=== PATIENT | male | born 1935 | race Caucasian/White ===

== ENCOUNTER 2016-09-13 20:50 | Emergency (ER) | payer OTHER, BC ==
[~2016-09-13] VITALS: Ht 177.8 cm; Wt 77.1 kg
[~2016-09-13 20:50] MED LIST: ASPIRIN81 M2 PO; CALCIUM 600 +1 EAC5 PO; CIALIS2.5 MG PO; DIOVAN160 MG; DIOVAN320 MG PO; DOXYCYCLINE 10100 MG PO; ELEMENTAL CALC600 MG PO; FISH OIL 1,0001 EAC5 PO; FISH OIL 1,001000 M1 PO; FISH OIL 1,001000 M2 PO; FLAGYL 250 MG250 MG PO; LEVAQUIN 500 M500 M7; LORATIDINE 10 M10 M1 PO; LOVASTAT40 PO; MULTI VITAMIN1 EACH PO; NEURONTIN 300300 M1; NEURONTIN 300300 M1 PO; NEURONTIN 300M300 M2 PO; NITROGLYCERIN0.4 MG SL; NORVASC 5 MG TAB5 MG PO; OMEPRAZOLE 20 M20 M1 PO; RANEXA1000 MG PO; RANEXA500 MG PO; TIZANIDINE HCL4 MG PO; TOPROL XL25 MG PO; VALSARTAN-HCTZ1 EAC3 PO; VASCEPA1 GM PO; VITAMINC500 PO
[2016-09-13] MEDS ORDERED: TRAMADOL 50 MG50 MG PO (22:37)
[2016-09-13] MEDS ORDERED: KEFLEX500 MG PO (22:43)
[2016-09-13 23:50] VITALS: BP 146/78
== END 2016-09-13 23:50 | disposition home or self-care (01) ==
LOC: ER 20:50
DX: S20.212A Contusion of left front wall of thorax, initial encounter (principal); M70.22 Olecranon bursitis, left elbow; I10 Essential (primary) hypertension; G62.9 Polyneuropathy, unspecified; E78.00 Pure hypercholesterolemia, unspecified; K21.9 Gastro-esophageal reflux disease without esophagitis; I25.2 Old myocardial infarction; Z90.49 Acquired absence of other specified parts of digestive tract; Z95.5 Presence of coronary angioplasty implant and graft; Z87.442 Personal history of urinary calculi; Z95.0 Presence of cardiac pacemaker; Z88.0 Allergy status to penicillin; Z88.2 Allergy status to sulfonamides; W11.XXXA Fall on and from ladder, initial encounter; Y93.E9 Activity, other interior property and clothing maintenance; Y92.090 Kitchen in other non-institutional residence as the place of occurrence of the external cause; Y99.8 Other external cause status

== ENCOUNTER 2017-01-21 13:37 | Inpatient (IN) | payer OTHER, BC ==
[~2017-01-21] VITALS: Ht 170.2 cm; Wt 70.8 kg
--- NOTE | ~2017-01-21 | D ---
[facility] [place] [address] [place] [address] DISCHARGE SUMMARY Name: STEPHANI NAVARRO Room #: 219-P [facility] IN M.R.#: [id number] Admission: 01/21/17 Attend Phys: Sen Maloney MD, Discharge: 01/23/17 Date of : 34 Report #: [id number] THIS REPORT FOR: //name// CC: Sen Rangel [facility] DISCHARGE DIAGNOSES: 1. Nonsustained ventricular tachycardia secondary to Medtronic MVP pacing algorithm initiating long short nonsustained ventricular tachycardia. 2. Coronary artery disease, status post coronary artery bypass graft. HISTORY OF PRESENT ILLNESS: The patient is an 81-year-old with history of coronary artery disease, status post CABG with a known occluded LAD and a COOPER to the LAD, who also has a history of Medtronic dual chamber pacemaker implantation for sick sinus syndrome. Recently, the patient has been having increased presyncopal episodes. His device was interrogated in clinic, which I reviewed, which showed episodes of nonsustained VT/polymorphic VT, which were all initiated with the MVP pacing algorithm. This would result in a long short and the episodes of VT were initiated by a ventricular safety paced beat. As such, on admission, this was programmed off. After programming this feature off, he had no further episodes of VT. We initially discussed having the patient undergo a coronary angiogram, but after reviewing the films with the recreation supervisor, he has a known occluded LAD with a long lesion as well as an occluded COOPER to the LAD. It was felt that if this site was ischemic, it would not be able to be intervened on. As such, we recommended medical management of this known area of ischemia based on a prior stress test earlier this summer. Beta blockers were initiated. The patient was monitored in the hospital and on telemetry, there were no arrhythmias. I interrogated his device each day and there were no further episodes of any ventricular arrhythmias. As such, the patient was deemed stable for discharge home. He was discharged on his same home medications. However, I did initiate a beta nikki during this hospitalization. He will follow up in 1 week with me for management of his pacemaker. He will continue to follow with Dr. Maloney for management of his known coronary artery disease. <ELECTRONICALLY SIGNED> By: Campbell Lopez MD 01/30/17 1314 1202 1424 Campbell Lopez MD /nt
--- NOTE | ~2017-01-21 | H ---
[facility] [address] [place] [address] HISTORY AND PHYSICAL Name: STEPHANI NAVARRO Room #: 219-P [facility] IN M.R.#: [id number] Admission: 01/21/17 Attend Phys: Sen Maloney MD, Discharge: 01/23/17 Date of : 34 Report #: [id number] THIS REPORT FOR: //name// CC: [facility] DATE OF SERVICE: 01/21/2017 REASON FOR ADMISSION: VT. HISTORY OF PRESENT ILLNESS: The patient is an 81-year-old with history of sick sinus syndrome, status post pacemaker implantation several years ago as well as coronary artery disease, status post CABG, last catheterization back in 08/2015. He follows with Dr. Maloney. His pacemaker is a 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 Mathew back in 03/2014. His CABG was performed by Dr. Deep Correa, which was a 5-vessel CABG in 2000. Over the past several days, the patient has been having increased lightheadedness and near syncopal episodes. He came in to clinic for further evaluation. His pacemaker was interrogated. This showed some episodes of nonsustained VT, actually more consistent with short runs of possibly torsades. These episodes started in early October and the frequency has increased. These are always preceeded by a long short which looks like it is related to his MVP pacing algorithm. The majority of these episodes are 1 second in duration. The longest duration was approximately 8 seconds with the ventricular cycle lengths anywhere from 200-240 milliseconds with irregularity and changes in the ventricular morphology and termination back to sinus rhythm. The patient denies any chest pain or chest tightness. He does notice increased exertional dyspnea. He denies any PND or orthopnea. REVIEW OF SYSTEMS: GENERAL: No fevers or chills. HEENT: No blurred vision. CARDIOVASCULAR: As above. PULMONARY: No productive cough. GASTROINTESTINAL: No nausea or vomiting. GENITOURINARY: No dysuria. MUSCULOSKELETAL: No myalgias or arthralgias. ENDOCRINE: No heat or cold intolerance. NEUROLOGIC: No focal weakness. PAST MEDICAL HISTORY: As mentioned above. SOCIAL HISTORY: Does not smoke. FAMILY HISTORY: Noncontributory. HOME MEDICATIONS: Include amlodipine 5 mg a day, aspirin 81 a day, Vascepa, [facility] [address] [place] [address] HISTORY AND PHYSICAL Name: STEPHANI NAVARRO Room #: 219-P [facility] IN M.R.#: [id number] Admission: 01/21/17 Attend Phys: Sen Maloney MD, Discharge: 01/23/17 Date of : 34 Report #: [id number] lovastatin, omeprazole, ranolazine, valsartan with hydrochlorothiazide. He is not on a beta nikki. ALLERGIES: INCLUDE PENICILLIN AND SULFA. VITAL SIGNS: Temperature is 36.4, pulse 61, respiration 17, blood pressure 142/80, sats 97%. LABORATORY DATA: His white count is 14.9, hemoglobin 11.7, platelets are 251. Sodium is 139, potassium 3.6, BUN 21, creatinine 1.1, T-bili 1.2. AST normal, ALT 19, alkaline phosphatase 80. His chest x-ray showed no acute process. Device interrogation is described above. A 12-lead EKG performed today at 1619 shows normal sinus rhythm with a IL interval 134 milliseconds, QRS duration 160 milliseconds and a corrected QT interval [address] or T-wave changes to suggest ischemia. ASSESSMENT AND PLAN: In summary, the patient is an 81-year-old with history of coronary artery disease status post myocardial infarction. Echo today shows an EF of 45%-50%. Given these findings, I have recommended that he undergo diagnostic cardiac catheterization tomorrow, looking for any ischemia that could be related to this. He has no prolonged QT on his EKG. He is not on any medications that could be prolonging his QT or resulting in ventricular arrhythmias. I did make programming changes to his pacemaker by turning off his MVP algorithm to hopefully prevent these long short intervals that induce these arrhythmias. We will continue to follow. <ELECTRONICALLY SIGNED> By: Campbell Lopez MD 01/30/17 1314 1735 1752 Campbell Lopez MD /nt
--- NOTE | ~2017-01-21 | EKG ---
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 LVH with IVCD, LAD and secondary repol abnrm Electronically Signed On 01-21-2017 21:24:57 HOST/HOSTESS HEAD by Campbell Lopez [email or web address] <ELECTRONICALLY SIGNED> By: Campbell Lopez MD 01/21/172123 18 18 Campbell Lopez MD /DARRIUS
[~2017-01-21 13:37] MED LIST changes: +KEFLEX500 MG PO; +TRAMADOL 50 MG50 MG PO
[2017-01-21 15:43] VITALS: BP 142/80
[2017-01-21 15:56] LABS: HEMATOCRIT 45.3 % (42.0-52.0); HEMOGLOBIN 15.3 gm/dL (14.0-18.0); MCH 30.1 pg (26.0-34.0); MCHC 33.8 g/dL (28.0-37.0); MCV 89.1 fL (80.0-100.0); RBC 5.08 mil/uL (4.50-6.00); RDW 13.9 % (10.5-14.5); WBC 7.2 thou/uL (4.0-11.0)
[2017-01-21 16:04] LABS: HEMATOCRIT 38.1 % (42.0-52.0); MCH 19.5 pg (26.0-34.0); MCHC 30.9 g/dL (28.0-37.0); RBC 6.03 mil/uL (4.50-6.00); RDW 16.7 % (10.5-14.5); WBC 14.9 thou/uL (4.0-11.0)
[2017-01-21 16:05] LABS: HEMOGLOBIN 11.7 gm/dL (14.0-18.0); MANUAL DIFF YES; MCV 63.1 fL (80.0-100.0); PLATELET COUNT 251 thou/uL (150-400)
[2017-01-21 16:09] LABS: ALBUMIN 3.8 g/dL (3.4-5.0); CALCIUM 9.2 mg/dL (8.5-10.1); CREATININE 1.1 mg/dL (0.7-1.3); INR 1.1; POTASSIUM 3.6 mmol/L (3.5-5.1); PROTIME 10.4 Seconds (9.3-11.4); TOTAL BILIRUBIN 1.2 mg/dL (<0.1-1.0)
[2017-01-21 16:23] LABS: ANISOCYTOSIS 1+; TOTAL CELL COUNT 100
[2017-01-21 16:24] LABS: HYPOCHROMASIA 1+; MICROCYTES SLIGHT
[2017-01-21 20:15] VITALS: BP 129/69
[2017-01-22 00:15] VITALS: BP 122/69
[2017-01-22 05:00] VITALS: BP 118/76
[2017-01-22 07:51] VITALS: BP 132/82
[2017-01-22 11:20] VITALS: BP 158/82
[2017-01-22 15:00] VITALS: BP 97/66
[2017-01-22 19:45] VITALS: BP 127/61
[2017-01-23 04:15] VITALS: BP 106/63
[2017-01-23 08:05] VITALS: BP 119/72
[2017-01-23] MEDS ORDERED: TOPROL XL25 MG PO (10:01)
[2017-01-23 11:05] VITALS: BP 118/64
[2017-01-23 12:00] VITALS: BP 106/63
== END 2017-01-23 13:15 | disposition home or self-care (01) | DRG 309 ==
LOC: 2N 13:37 → ENTRNSPT 01-23 12:56 → EDTRNSPTSTS 01-23 12:59 → 2N 01-23 13:15
PROVIDERS: Internal Medicine Cardiovascular Disease; Nurse Practitioner Adult Health
DX: I47.2 Ventricular tachycardia (principal); I50.42 Chronic combined systolic (congestive) and diastolic (congestive) heart failure; I25.10 Atherosclerotic heart disease of native coronary artery without angina pectoris; I49.5 Sick sinus syndrome; Z95.1 Presence of aortocoronary bypass graft; Z88.0 Allergy status to penicillin; Z88.2 Allergy status to sulfonamides; I25.2 Old myocardial infarction; Z95.0 Presence of cardiac pacemaker
CPT/HCPCS: 10797

== ENCOUNTER → 2018-01-29 | Outpatient (CLI) | payer OTHER, BC ==
[~2018-01-29] VITALS: Ht 175.3 cm; Wt 72.6 kg
[~2018-01-29] MED LIST changes: +LOSARTAN-HCTZ1 EAC2 PO; +PACERONE 200 M200 M1 PO; +TYLENOL EXTRA500 MG PO
--- NOTE | ~2018-01-29 | P ---
[facility] [place] [address] PROCEDURE REPORT Name: STEPHANI NAVARRO [id number] Admission: 01/29/18 Attend Phys: Abdelrahman Carr Discharge: Date of : 34 Report #: [id number] THIS REPORT FOR: //name// CC: Abdelrahman Maloney MD [facility] Juan Carlos Greenberg MD DATE OF SERVICE: 01/29/2018 PROCEDURE PERFORMED: Colonoscopy with biopsies. HISTORY OF PRESENT ILLNESS: The patient is an 82-year-old male with a history of multiple tubular adenomatous polyps 3 years ago, here for routine followup. Denies any symptoms. No family history of colon cancer. DESCRIPTION OF PROCEDURE: The risks and benefits of the procedure were explained to the patient, those risks including but not limited to bleeding, perforation and the risk of sedation. He understood these risks and gave informed consent. Sedation was given using propofol per Anesthesia. Next, a digital rectal exam was initially performed, which was normal. Next, using a standard Olympus colonoscope, the scope was placed in the patient's anus and advanced under direct vision to the cecum. The overall prep was good. The cecum and ileocecal valve were normal in appearance. In the ascending colon, there was a 3 mm sessile polyp. This was removed with cold forceps, otherwise normal. In the transverse colon, a 5 mm sessile polyp also removed with cold forceps, otherwise normal. Descending colon was normal. Multiple diverticula noted in the sigmoid colon, no evidence of inflammation. The rectal mucosa was normal. On retroflexion, small to medium size, nonbleeding internal hemorrhoids were noted. The scope was then withdrawn and the procedure terminated. The patient tolerated the procedure well. IMPRESSION: 1. Two small colonic polyps. 2. Sigmoid diverticulosis. 3. Internal hemorrhoids. 4. Otherwise, normal colonoscopy. RECOMMENDATIONS: 1. Await biopsy results. 2. No need for repeat colonoscopy due to the patient's age. [address] [address] PROCEDURE REPORT Name: STEPHANI NAVARRO Room #: REG [facility]#: [id number] Admission: 01/29/18 Attend Phys: Abdelrahman Carr Discharge: Date of : 34 Report #: [id number] Thank you for allowing me to participate in his care. <ELECTRONICALLY SIGNED> By: Abdelrahman Mark MD 02/01/18 0902 0854 0929 Abdelrahman Mark MD /nt
--- NOTE | ~2018-01-29 | PATH ---
[facility] [address] [place] [address] PATHOLOGY RPT PROCEDURE Name: MATTHIEU SANCHEZ Room #: REG CLSarah Shah.#: [id number] Admission: 01/29/18 Date of : 34 Discharge: Report #: [id number] Path Case #: [id number] [facility] Accession Number: [id number] . 01 Material submitted: . PART A: POLYP AT TRANSVERSE COLON PART B: POLYP AT ASCENDING COLON . 01 Clinical history: . Pre-OP DX: Hx polyps Post-OP DX: Colon polyp, diverticulosis . 02 Diagnosis: A. Polyp, at transverse colon, endoscopic biopsy: - Tubular adenoma. - Negative for high grade dysplasia. . B. Polyp, at ascending colon, endoscopic biopsy: - Tubular adenoma. - Negative for high grade dysplasia. . (IUV:mml; 02/01/18) QL/02/01/2018 . 02 Electronically signed: . Ashley Priest MD, Pathologist NPI- [id number] . 01 Gross description: . A. Received in formalin labeled "Matthieu Sanchez, polyp at transverse colon," is a single segment of lee soft tissue measuring 0.5 cm in maximum dimension. The specimen is entirely submitted in cassette A1. . B. Received in formalin labeled "Matthieu Sanchez, polyp at ascending colon," are 2 segments of lee soft tissue measuring 0.5 x 0.3 x 0.2 cm in aggregate dimensions and ranging from 0.2 to 0.3 cm in maximum dimension. The specimen is submitted entirely in cassette B1. (TSD; 01/29/2018) TOB/TOB . 02 Pathologist provided ICD-10: D12.3, D12.2 . 02 CPT . 613744, 325785 Specimen Comment: A courtesy copy of this report has been sent to Specimen Comment: [phone], [place] [address] PATHOLOGY RPT PROCEDURE Name: MATTHIEU SANCHEZ [facility] [id number] Admission: 01/29/18 Date of : 34 Discharge: Report #: [id number] Path Case #: [id number] Specimen Comment: Report sent to / DR COPE Performed at: [address], [place], [place] [id number] MD Deondre Grace MD Phone: [phone] Performed at: [address] [id number] MD Ashley Priest MD Phone: [phone]
== END | disposition home or self-care (01) ==
LOC: GI 06:23
DX: Z12.11 Encounter for screening for malignant neoplasm of colon (principal); Z86.010 Personal history of colon polyps; D12.2 Benign neoplasm of ascending colon; D12.3 Benign neoplasm of transverse colon; K57.30 Diverticulosis of large intestine without perforation or abscess without bleeding; K64.8 Other hemorrhoids; K21.9 Gastro-esophageal reflux disease without esophagitis; I10 Essential (primary) hypertension; I25.2 Old myocardial infarction; I25.5 Ischemic cardiomyopathy; E78.5 Hyperlipidemia, unspecified; G62.9 Polyneuropathy, unspecified; Z95.5 Presence of coronary angioplasty implant and graft; Z98.890 Other specified postprocedural states; Z79.899 Other long term (current) drug therapy; Z87.442 Personal history of urinary calculi; Z90.49 Acquired absence of other specified parts of digestive tract; Z95.0 Presence of cardiac pacemaker; Z98.41 Cataract extraction status, right eye; Z98.42 Cataract extraction status, left eye; Z88.2 Allergy status to sulfonamides; Z88.0 Allergy status to penicillin; Z79.82 Long term (current) use of aspirin
CPT/HCPCS: 62110; 62900

== ENCOUNTER → 2019-02-24 | Outpatient (CLI) | payer OTHER, BC | LOC: RAD 09:43 | DX: M25.851 Other specified joint disorders, right hip (principal); M25.511 Pain in right shoulder; M25.512 Pain in left shoulder; W19.XXXA Unspecified fall, initial encounter ==

== ENCOUNTER → 2019-03-30 | Outpatient (CLI) | payer OTHER, BC | LOC: SJCVCIMAG 07:43 | DX: Z45.018 Encounter for adjustment and management of other part of cardiac pacemaker (principal); I11.9 Hypertensive heart disease without heart failure; I08.3 Combined rheumatic disorders of mitral, aortic and tricuspid valves; I25.10 Atherosclerotic heart disease of native coronary artery without angina pectoris; I49.5 Sick sinus syndrome; I73.9 Peripheral vascular disease, unspecified; E78.00 Pure hypercholesterolemia, unspecified; I47.2 Ventricular tachycardia; I25.5 Ischemic cardiomyopathy; K21.9 Gastro-esophageal reflux disease without esophagitis; Z95.1 Presence of aortocoronary bypass graft ==

== ENCOUNTER → 2019-09-30 | Outpatient (CLI) | payer OTHER, BC | LOC: SJCVC 12:57 | PROVIDERS: ATTEND Internal Medicine Cardiovascular Disease | DX: Z45.018 Encounter for adjustment and management of other part of cardiac pacemaker (principal); I25.10 Atherosclerotic heart disease of native coronary artery without angina pectoris; I25.5 Ischemic cardiomyopathy; I49.5 Sick sinus syndrome; E78.00 Pure hypercholesterolemia, unspecified; I73.9 Peripheral vascular disease, unspecified; E78.1 Pure hyperglyceridemia; Z95.1 Presence of aortocoronary bypass graft; Z79.899 Other long term (current) drug therapy ==

== ENCOUNTER → 2020-06-21 | Outpatient (CLI) | payer OTHER, BC | LOC: SJCVC 13:49 | PROVIDERS: ATTEND Internal Medicine Cardiovascular Disease | DX: I25.10 Atherosclerotic heart disease of native coronary artery without angina pectoris (principal); I25.5 Ischemic cardiomyopathy; I49.5 Sick sinus syndrome; I10 Essential (primary) hypertension; I47.2 Ventricular tachycardia; E78.00 Pure hypercholesterolemia, unspecified; E78.1 Pure hyperglyceridemia; R79.89 Other specified abnormal findings of blood chemistry; E11.9 Type 2 diabetes mellitus without complications; Z95.1 Presence of aortocoronary bypass graft; Z90.49 Acquired absence of other specified parts of digestive tract; Z98.890 Other specified postprocedural states; Z88.0 Allergy status to penicillin; Z88.2 Allergy status to sulfonamides; Z79.899 Other long term (current) drug therapy; Z82.49 Family history of ischemic heart disease and other diseases of the circulatory system ==

== ENCOUNTER 2020-07-19 14:27 | Inpatient (IN) | payer OTHER, BC ==
[~2020-07-19] VITALS: Ht 172.7 cm; Wt 61.5 kg
[~2020-07-19 14:27] MED LIST changes: -TORSEMIDE10 MG PO; -ZOLOFT25 MG PO
[2020-07-19 15:15] VITALS: BP 156/86
[2020-07-19 16:10] LABS: HEMATOCRIT 39.8 % (42.0-52.0); HEMOGLOBIN 13.2 gm/dL (14.0-18.0); MCH 31.3 pg (26.0-34.0); MCHC 33.2 g/dL (28.0-37.0); MCV 94.1 fL (80.0-100.0); RBC 4.23 mil/uL (4.50-6.00); RDW 16.7 % (10.5-14.5); WBC 7.1 thou/uL (4.0-11.0)
[2020-07-19 16:32] LABS: ALBUMIN 3.3 g/dL (3.4-5.0); CALCIUM 8.9 mg/dL (8.5-10.1); CREATININE 1.5 mg/dL (0.7-1.3); POTASSIUM 3.4 mmol/L (3.5-5.1); TOTAL BILIRUBIN 1.3 mg/dL (0.2-1.0); TOTAL PROTEIN 6.8 g/dL (6.4-8.2)
[2020-07-19 18:00] VITALS: BP 146/71
[2020-07-19 19:23] VITALS: BP 137/69
[2020-07-20 00:25] VITALS: BP 135/86
[2020-07-20 04:39] VITALS: BP 155/87
[2020-07-20 09:50] VITALS: BP 142/82
[2020-07-20 11:58] VITALS: BP 130/78
[2020-07-20 16:00] VITALS: BP 140/91
[2020-07-20 19:47] VITALS: BP 143/90
[2020-07-21 03:51] LABS: CALCIUM 8.9 mg/dL (8.5-10.1); CREATININE 1.6 mg/dL (0.7-1.3); POTASSIUM 3.3 mmol/L (3.5-5.1)
[2020-07-21 04:11] VITALS: BP 132/66
[2020-07-21 07:46] VITALS: BP 124/68
[2020-07-21 11:03] VITALS: BP 104/68
[2020-07-21] MEDS ORDERED: ZOLOFT25 MG PO (11:08)
[2020-07-21 15:11] VITALS: BP 124/80
== END 2020-07-21 15:59 | DRG 291 ==
LOC: 2N 14:27
PROVIDERS: Nurse Practitioner; Nurse Practitioner Adult Health; ADMIT Internal Medicine Cardiovascular Disease; ATTEND Internal Medicine Cardiovascular Disease
PROC: 4B02XSZ Measurement of Cardiac Pacemaker, External Approach (ICD-10-PCS; principal; 2020-07-19)
DX: I11.0 Hypertensive heart disease with heart failure (principal); J96.20 Acute and chronic respiratory failure, unspecified whether with hypoxia or hypercapnia; I50.23 Acute on chronic systolic (congestive) heart failure; Z20.822 Contact with and (suspected) exposure to COVID-19; I25.5 Ischemic cardiomyopathy; I25.10 Atherosclerotic heart disease of native coronary artery without angina pectoris; I73.9 Peripheral vascular disease, unspecified; G62.9 Polyneuropathy, unspecified; E78.00 Pure hypercholesterolemia, unspecified; K21.9 Gastro-esophageal reflux disease without esophagitis; M21.6X1 Other acquired deformities of right foot; F32.9 Major depressive disorder, single episode, unspecified; M17.0 Bilateral primary osteoarthritis of knee; E78.5 Hyperlipidemia, unspecified; I49.5 Sick sinus syndrome; R53.81 Other malaise; Z88.0 Allergy status to penicillin; Z95.1 Presence of aortocoronary bypass graft; Z88.2 Allergy status to sulfonamides; Z79.82 Long term (current) use of aspirin; Z79.899 Other long term (current) drug therapy; Z90.49 Acquired absence of other specified parts of digestive tract; Z98.42 Cataract extraction status, left eye; Z98.41 Cataract extraction status, right eye; I25.2 Old myocardial infarction; Z95.5 Presence of coronary angioplasty implant and graft; Z87.442 Personal history of urinary calculi; I34.0 Nonrheumatic mitral (valve) insufficiency
CPT/HCPCS: 10797

== ENCOUNTER → 2020-07-19 | Outpatient (CLI) | payer OTHER, BC ==
[~2020-07-19] MED LIST changes: +TORSEMIDE10 MG PO; +ZOLOFT25 MG PO
== END ==
LOC: CANPRECLI → SJCVCIMAG 11:47 → SJCVC 11:47
PROVIDERS: ATTEND Internal Medicine Cardiovascular Disease
DX: R94.31 Abnormal electrocardiogram [ECG] [EKG] (principal); I25.10 Atherosclerotic heart disease of native coronary artery without angina pectoris; I25.5 Ischemic cardiomyopathy; I49.5 Sick sinus syndrome; I47.2 Ventricular tachycardia; I10 Essential (primary) hypertension; E78.00 Pure hypercholesterolemia, unspecified; R79.89 Other specified abnormal findings of blood chemistry; R06.00 Dyspnea, unspecified; E11.9 Type 2 diabetes mellitus without complications; F32.9 Major depressive disorder, single episode, unspecified; Z79.899 Other long term (current) drug therapy; Z95.1 Presence of aortocoronary bypass graft; Z88.0 Allergy status to penicillin; Z88.2 Allergy status to sulfonamides

== ENCOUNTER 2020-07-21 09:02 | Inpatient (IN) | payer OTHER, BC ==
[~2020-07-21] VITALS: Ht 172.7 cm; Wt 61.1 kg
[2020-07-21] MEDS ORDERED: ZOLOFT25 MG PO (11:08)
--- NOTE | 2020-07-21 16:44 | NUR ---
1600 ADMITTED PATIENT TO ROOM 504. PATIENT IS ALERT AND ORIENTED X4. PATIENT IS [place]. PATIENT USES HEARING AIDS. LUNGS ARE CLEAR, ON R.A. ABD IS SOFT WITH BSX4. VOIDS RAMILA COLORED URINE PER URINAL. PATIENT HAS S.L. IN HIS RIGHT FORARM. FALL AND SAFETY PROTOCOLS IN PLACE. DENIES PAIN AT THIS TIME. C/O L.E. WEAKNESS. CALL LIGHT AND H20 IN PATIENT'S REACH. PLAN EVALS ON SUN/MON. WILL CONTINUE TO MONITER.
[2020-07-21 20:00] VITALS: BP 117/60
--- NOTE | 2020-07-21 23:41 | NUR ---
ASSESSMENT: PT REMAIN ALERT AND ORIENT TIMES FOUR. SLEEPING WELL. VSS, AFEBRILE. RIGHT FA IV PATENT AND SALINE LOCKED. KING SALMON WITH GRACIELA AIDS. DENIES PAIN, SOB AND N/V. GOOD PROGRESS TOWARDS DC GOALS. WILL CONTINUE TO MONITOR.
[2020-07-22 05:29] LABS: HEMATOCRIT 40.9 % (42.0-52.0); HEMOGLOBIN 13.7 gm/dL (14.0-18.0); MCH 31.3 pg (26.0-34.0); MCHC 33.5 g/dL (28.0-37.0); MCV 93.4 fL (80.0-100.0); RBC 4.38 mil/uL (4.50-6.00); RDW 15.6 % (10.5-14.5); WBC 7.8 thou/uL (4.0-11.0)
[2020-07-22 05:47] LABS: CREATININE 1.6 mg/dL (0.7-1.3)
[2020-07-22 08:00] VITALS: BP 129/50
--- NOTE | 2020-07-22 14:00 | NUR ---
ASSESSMENT CHARTED. PT ALERT AND ORIENTED. VSS. DENIED HAVING PAIN OR DISCOMFORT. UP IN THE CHAIR THIS SHIFT. NO CONCERNS AT THIS TIME. PROGRESSING WELL TOWARDS DISCHARGE GOAL.
[2020-07-22 19:01] VITALS: BP 130/68
[2020-07-23 05:31] LABS: CALCIUM 8.7 mg/dL (8.5-10.1); CREATININE 1.7 mg/dL (0.7-1.3); POTASSIUM 3.8 mmol/L (3.5-5.1)
--- NOTE | 2020-07-23 10:04 | NUR ---
WOUND NOTED TO SOLE OF RIGHT AND LEFT FOOT. PATIENT STATES HE HAS HAD THEM FOR A WHILE. STATES THEY ARE NOT PAIN. THE WOUND TO RIGHT NOTED TO HAVE SOME BLOOD TINGED DISCHARGES. PICTURES TAKEN AND DRESSING APPLIED.
--- NOTE | 2020-07-24 01:34 | NUR ---
UP TO TOILET FOR BM USING GAIT BELT, WALKER, WITH STANDBY ASSIST, NO C/O PAIN BUT NONETHELESS WALKING CAREFULLY ON HIS FEET. WEAKNESS APPARENT, BUT ABLE TO STAND AT SINK TO WASH HANDS. IS ABLE TO SWALLOW PILLS WHOLE A FEW AT A TIME WITH WATER. SMALL VOIDS PER URINAL.
[2020-07-24 08:00] VITALS: BP 107/56
--- NOTE | 2020-07-24 13:24 | NUR ---
WOUND CARE CONSULT; ROUNDING WITH DR LU IBARRA AND GUANAKITO ALFARO RN MSN. THIS IS A KNOWN PATIENT WHO HAS PERIODS OF HOMLESSNESS. THE BILATERAL LEG WOUNDS ARE CONSISTANT WITH VENOUS STASIS DISEASE. THE RIGHT LEG HAS VERY THICK AND SCALY SKIN CONSISTANT WITH BEING IN WRAPS A GREAT AMOUNT OF TIME WITHOUT CHANGING. THE LEFT LEG IS VERY TENDER TO TOUCH ALSO WITH A GREAT AMOUNT OF THICK SCALY SKIN. UNDER THE SKIN THERE ARE WOUNDS THAT ARE VERY PAINFUL RELATED TO INFECTION. RECOMMENDATIONS; SEE DR IBARRA ORDERS.
--- NOTE | 2020-07-24 13:34 | NUR ---
chart review. unable to visit with him this am rt working with therapy. [facility] lives at [facility]. team meeting, will need assist with bills and pills, mod cog and memory. weaned off o2 . dc 08/01 [facility] ( pt,ot,st nursing). no dme. no driving, follow up with pcp.
--- NOTE | 2020-07-24 14:43 | NUR ---
PT ALERT AND ORIENTED TIMES FOUR. VSS. PT DENIES PAIN/SOA. PT TOLERATES MEDS AND MEALS/ PT WORKED WELL WITH PT/OT TODAY. PT PROGRESSING TOWRADS POC GOALS.
[2020-07-24 19:30] VITALS: BP 97/59
--- NOTE | 2020-07-25 01:31 | NUR ---
UP TO TOILET WITH CONTACT GUARD ASSIST, GAIT BELT, AND WALKER. HAD BM EARLIER IN THE DAY. TOLERATING MEDS WHOLE IN APPLESAUCE, PATIENT STATES APPLESAUCE WAS SUGGESTED TO HIM. LEG DRESSINGS INTACT, DENIES PAIN.
[2020-07-25 06:43] LABS: CALCIUM 8.7 mg/dL (8.5-10.1); CREATININE 1.9 mg/dL (0.7-1.3); POTASSIUM 3.3 mmol/L (3.5-5.1)
[2020-07-25 08:00] VITALS: BP 105/55
--- NOTE | 2020-07-25 10:22 | NUR ---
ASSUMED CARE OF PATIENT AT 0700. PT WORKING WITH OT ON ARRIVAL TO ROOM. PT. STATES UNDERSTANDING OF TAKING MEDS WHOLE WITH APPLESAUCE. PT. USES CALL LIGHT CORRECTLY, VOIDS PER URINAL, WALKS TO BR WITH WALKER AND GAIT BELT. PT ABLE TO SHOWER SELF WITH SBA. PT ON ROOM AIR. DENIES PAIN. PT ABLE TO FEED SELF, NO STRAWS. HEART HEALTHY DIET. BED ALARM AND CHAIR ALARM ACTIVATED. WILL CONTNIUE TO MONITOR
--- NOTE | 2020-07-25 10:30 | HC ---
[facility] [address] [place] [address] CONSULTATION Name: STEPHANI NAVARRO Room #: 504-1 ADM IN M.R.#: [id number] Admission: 07/21/20 Attend Phys: Javier Mckeon MD Discharge: Date of : 34 Report #: [id number] THIS REPORT FOR: cc: Juan Carlos Greenberg MD, Rene P. MD Stephens, Thad A. MD ~ DOC #: [id number] George Whitley MD DATE OF SERVICE: 07/24/2020 WOUND CARE CONSULTATION REQUESTING PHYSICIAN: Dr. Juan Carlos Greenberg. CHIEF COMPLAINT: Bilateral foot ulcers. HISTORY OF PRESENT ILLNESS: This is an 84-year-old white male who was hospitalized for congestive heart failure, is now currently on the rehab floor. The patient upon admission was noted to have calluses on bilateral plantar feet, which he normally sees the orientation & mobility specialist for. We have been asked to see the patient for further evaluation of these plantar calluses and ulcers. 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 CURRENT MEDICATIONS: Multiple, I reviewed the patient's medication list. DRUG ALLERGIES: PENICILLIN AND SULFA. SOCIAL HISTORY: The patient does not smoke or drink alcohol. Currently, lives in a long-term care facility. FAMILY HISTORY: None pertinent to current medical condition. REVIEW OF SYSTEMS: CONSTITUTIONAL: The patient denies fevers or chills. NEUROLOGIC: The patient has overall generalized weakness, but no isolated weakness in arms or legs. EYES: No complaints. ENT: No complaints. CARDIOVASCULAR: The patient denies chest pain, palpitation or peripheral edema. RESPIRATORY: The patient denies shortness of breath, cough or wheezing. GASTROINTESTINAL: The patient denies nausea, vomiting, abdominal pain. GENITOURINARY: The patient denies urgency or frequency. MUSCULOSKELETAL: No complaints. [facility] [address] [place] [address] CONSULTATION Name: STEPHANI NAVARRO Room #: 504[facility] IN .R.#: [id number] Admission: 07/21/20 Attend Phys: Javier Mckeon MD Discharge: Date of : 34 Report #: [id number] SKIN: The patient has chronic ulcerations, plantar aspect of bilateral feet. PHYSICAL EXAMINATION: VITAL SIGNS: Temperature 36.3, pulse 62, respirations 16, BP 107/56. GENERAL: This is alert and oriented x 3, pleasant elderly male who is in no obvious distress. HEENT: Normocephalic, atraumatic. Mucous membranes are moist. Pupils are round. Sclerae white. NECK: Without JVD. LUNGS: Clear. HEART: Regular. ABDOMEN: Soft, nontender. EXTREMITIES: The patient is moving all extremities without difficulty. The patient has 1+ dorsalis pedis pulses bilaterally. On the plantar aspect of both feet, calluses which did not appear to have any actual open ulcerations. No signs of active infection or cellulitis. Bilateral heels are intact. NEUROLOGIC: Cranial nerves II-XII grossly intact. Motor and sensory are grossly intact. LABORATORY DATA: White count 7.8, hemoglobin 13.7, albumin 3.3. IMPRESSION: 1. Diabetic ulcer, plantar aspect of left foot without signs of infection. 2. Txhdsik-Obxpi-Usvaj deformity, right foot with an ulcer to the plantar surface without signs of infection. 3. Coronary artery disease. 4. Congestive heart failure. 5. Hypertension. 6. Hyperlipidemia. 7. Generalized debility. 8. Moderate protein-calorie malnutrition with albumin 3.3. PLAN: Xeroform bordered foam will be ordered for both the plantar foot ulcerations. We will offload his heels with pillows or boots at all times. I will consider doing the bedside debridement on the ulcerations. The patient will allow. We will utilize physical and occupation therapy for strengthening. We will make sure we maximize the patient's oral protein supplementation for healing. We will continue all other current medications. George Whitley MD [facility] [address] CONSULTATION Name: STEPHANI NAVARRO Room #: 504-1 ADM IN M.R.#: [id number] Admission: 07/21/20 Attend Phys: Javier Mckeon MD Discharge: Date of : 34 Report #: [id number] <ELECTRONICALLY SIGNED> By: George Whitley MD 07/25/20 1030 1636 2231 George Whitley MD /nt
--- NOTE | 2020-07-25 13:06 | NUR ---
referral to rodolfo nichols rt go to [facility].
[2020-07-25 20:49] VITALS: BP 121/70
--- NOTE | 2020-07-26 01:02 | NUR ---
ASSUMED CARE AT 1900 OF 07/24. PATIENT IS A&0X4. DENIES PAIN OR SOB. CONTACT GUARD ASSIT, USING GB AND WALKER TO TRANSFER TO BATHROOM. MEDICATIONS ADMNISTERED WHOLE IN APPLE SAUCE, PATIENT TOLERATED THIS WELL. NO CONCERNS AT THIS TIME, WILL CONTINUE TO MONITOR.
[2020-07-26 11:30] VITALS: BP 121/70
--- NOTE | 2020-07-26 17:09 | NUR ---
ASSUMED CARE OF PT. AT 0700. PT A&OX4. PT WITH OT UPON ARRIVAL TO ROOM. PT TOLERATING MECHANICAL ALTERED CHOPPED FOOD. PT. WILLINGLY WORKS WITH THERAPIES. PT ON ROOM AIR. PT. WOUNDS DEBRIDED WITH SCAPEL TODAY BY DR. LOTUS MORELOS WITH GAIT BELT. BED ALARM, CHAIR ALARM ACTIVATED. BED IN LOW POSITION CALL LIGHT WITHIN REACH WHEELS LOCKED. WILL CONTNIUE TO MONITOR.
[2020-07-26 19:16] VITALS: BP 83/52
[2020-07-26 20:30] VITALS: BP 117/63
--- NOTE | 2020-07-26 20:30 | NUR ---
PT AMBULATING TO BR WITH WALKER AND ASSIST OF MANUFACTURING ENGINEER. MANUFACTURING ENGINEER REACHED AROUND PT TO OPEN BATHROOM DOOR AND PT STEPPED BACK AND LOST HIS BALANCE. STATED HE HIT HIS HEAD ON CHAIR NEAR BATHROOM. PT LYING ON FLOOR WHEN THIS NURSE ENTERED ROOM. PT ASSISTED TO SITTING POSITION, AND THEN STANDING POSITION AND ASSISTED BACK TO RECLINER. VS 98-64-17, 117/63, O2 SAT 96%. PT HAS SKIN TEARS X 2 ON RIGHT ELBOW AND ON RIGHT THUMB. DRESSINGS APPLIED TO AREAS. [facility] NOTIFIED. DR BATEMAN NOTIFIED WITH ORDER RECEIVED TO HOLD AMLODIPINE. PT REQUESTED THAT FAMILY NOT BE CALLED. NEURO ASSESSMENT WNL. PT DENIES PAIN OR DISCOMFORT. PT ASSISTED TO BATHROOM AND THEN TO BED. BED ALARM ON FOR SAFETY. WILL CONTINUE TO MONITOR.
[2020-07-26 20:32] VITALS: BP 106/66
[2020-07-26 21:07] VITALS: BP 117/63
[2020-07-26 21:30] VITALS: BP 109/65
[2020-07-27 08:00] VITALS: BP 104/49
--- NOTE | 2020-07-27 11:00 | NUR ---
ASSUMED CARE AT 0700. PER REPORT PT HAD A FALL. ALERT AND ORIENTATED X 4. NO SIGNS OF CONFUSION OR IN ANY DISTRESS OR PAIN THIS MORNING. PT ABLE TO MOVE ALL EXTREMITITES WITHOUT ANY GRIMACES. PLESANT AND DENIES ANY LIGHTHEADEDNESS OR DIZZINESS. UP WITH MOD ASSIST USING THE WALKER. PARTICIPATING WITH THERAPY AND PROGRESSING TOWARDS GOAL. SKIN TEAR NOTED ON THE R THUMB AREA AND R ELBOW WITH DRESSING IN PLACE. KYLE WITH WOUND CARE CONSULTED REGARDING THE SKIN TEAR. WOUND CARE DONE TO GRACIELA ERVIN
--- NOTE | 2020-07-27 14:18 | NUR ---
WOUND CARE F/U; THE PATIENT HAD A FALL YESTERDAY. TODAY I AM HERE FOR AN ASSESSMENT OF HIS INJURIES. THE INJURIES ARE TWO(2) MINOR SKIN TEARS. ONE TO THE RIGHT THUMB WHICH STERISTRIPS TO REAPPROXIMATE THE SKIN. THERE ARE NO S/S OF INFECTION AND THE WOUND IS STABLE. THE RIGHT ELBOW HAS A SMALL SKIN TEAR THAT WAS APPROXIMATED AND HAS NO STERISTRIPS. RECOMMENDATIONS; -XEROFORM GAUZE/BORDER FOAM TO THE RIGHT ELBOW, CHANGE M/W/F PRN. -XEROFORM GAUZE/1" ROLLED GAUZE TO THE RIGHT THUMB, CHANGE M/W/F PRN. DISCUSSED WITH LEISA
[2020-07-27 19:14] VITALS: BP 94/47
--- NOTE | 2020-07-28 01:21 | NUR ---
PT ASSESSMEMT COMPLETED AND VSS. MEDS GIVEN ORDERED AND WELL TOLERATED. FALL PRECAUTIONS IN PLACE. DRESSINGS DRY AND INTACT. PT DENIES NEEDS. SLEEPING WELL. WILL CONTINUE TO MONITOR FREQUENTLY.
[2020-07-28 05:09] LABS: HEMATOCRIT 38.1 % (42.0-52.0); HEMOGLOBIN 12.9 gm/dL (14.0-18.0); MCH 31.6 pg (26.0-34.0); MCHC 33.9 g/dL (28.0-37.0); MCV 93.2 fL (80.0-100.0); RBC 4.08 mil/uL (4.50-6.00); WBC 5.7 thou/uL (4.0-11.0)
[2020-07-28 05:39] LABS: CALCIUM 8.6 mg/dL (8.5-10.1); CREATININE 1.6 mg/dL (0.7-1.3); MAGNESIUM 2.1 mg/dL (1.8-2.4); POTASSIUM 3.9 mmol/L (3.5-5.1)
[2020-07-28 07:15] VITALS: BP 118/74
--- NOTE | 2020-07-28 09:40 | NUR ---
PT SITTING UP IN THE CHAIR EATING BREAKFAST. PT DID TAKE MEDS IN APPLESAUCE. PT HAS WOUND TO RT THUMB AND RT ELBOW. PT DENIES ANY PAIN. PT LUNGS CLEAR AND ON ROOM AIR. LAST BM 07/25. PT PLEASANT AND CHEERFUL THIS AM.
[2020-07-28 19:33] VITALS: BP 98/58
--- NOTE | 2020-07-29 00:47 | NUR ---
PT ASSESSMENT COMPLETED AND VSS. MEDS GIVEN ORDERED AND WELL TOLERATED. FALL PRECAUTIONS IN PLACE. UP TO THE BATHROOM WITH ASST/GAIT/WALKER. SMALL BM AT HS. STOOL SOFTNER GIVEN PER PT REQUEST. PT DENIES NEEDS. DRESSINGS ALL DRY AND INTACT. SLEEPING WELL AT THIS TIME. WILL CONTINUE TO MONITOR FREUQENTLY.
[2020-07-29 07:46] VITALS: BP 114/67
--- NOTE | 2020-07-29 09:45 | NUR ---
PT SITTING UP IN CHAIR THIS AM. PT DENIES ANY PAIN. PT HAD DRESSING TO RT ELBOW AND RT THUMB. PT LUNGS CLEAR. PT TOOK AM MEDS WITH WATER WITHOUT ANY ISSUES. PT HAS DRESSING TO FEET BILATERALY. PT DIDN'T SEEM TO HAVE ANY GRIEVING TOWARDS , PT PASSED 3-4 MONTHS AGO FROM COVID COMPLICATIONS. PT STATED THEY WAS FOR 50+ YEARS. 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 PT UP WITH ASSIST WITH WALKER.
--- NOTE | 2020-07-29 18:28 | NUR ---
PT HAS HAD A GOOD DAY TODAY. PT UP TO BATHROOM WITH WALKER AND ASSIST. PT DENIES ANY PAIN THIS SHIFT. PT HAS RESTED IN CHAIR DURING THIS SHIFT. PT EATING WELL AND DRINKING.
[2020-07-29 19:16] VITALS: BP 108/57
--- NOTE | 2020-07-30 00:10 | NUR ---
PT ALERT AND ORIENTED X 4. UP IN RECLINER ALL EVENING. TRANSFERRED TO BED AT WITH ASSIST X 1. DRESSINGS TO RIGHT ELBOW, RIGHT THUMB AND BOTH FEET C/D/I. PT TOOK HS MEDS IN APPLESAUCE WITHOUT DIFFICULTY. PT DENIES PAIN OR DISCOMFORT. BED ALARM ON FOR SAFETY. PT APPEARS TO BE SLEEPING ON HOURLY ROUNDS.
--- NOTE | 2020-07-30 11:00 | NUR ---
ASSUMED CARE AT 0700. SLEPT FAIRLY WELL. ALERT AND ORIENTATED X 4. DENIES ANY PAIN TODAY. NO REPORTED CHEST PAIN, LIGHTHEADEDNESS OR DIZZINERSS. UP WITH MIN ASSIST WITH WALKER. APPETITE GOOD, HAD A LAST BM 07/30. WOUND CARE DONE TO RUE AND BLE. PARTICIPATING WITH THERAPY AND PROGRESSING TOWARDS GOAL. TOLERATED HIS MEDS WITH APPLE SAUCE. NO OTHER CONCERNS, CONT TO MONITOR.
[2020-07-30 19:27] VITALS: BP 128/78
--- NOTE | 2020-07-31 01:57 | NUR ---
PT ASSESSMENT COMPLETED AND VSS. MEDS GIVEN ORDERED AND WELL TOLERATED. FALL PRECAUTIONS IN PLACE. PT UP TO THE BATHROOM WITH ASST/GAIT/WALKER. STEADY. PT WAS FEELING CONSTIPATED BUT DID HAVE A MODERATE BM. STOOL SOFTNER GIVEN. PT DID REMEMBER TO CALL FOR EVENING MEDICATION. SLEEPING WELL AT THIS TIME. WILL CONTINUE TO MONITOR FREQUENTLY.
[2020-07-31 08:04] VITALS: BP 125/77
[2020-07-31 10:30] LABS: CALCIUM 8.5 mg/dL (8.5-10.1); CREATININE 1.3 mg/dL (0.7-1.3); POTASSIUM 3.9 mmol/L (3.5-5.1)
--- NOTE | 2020-07-31 11:00 | NUR ---
ASSUMED CARE AT 0700. SLEPT WELL LAST NIGHT. ALERT AND ORIENTATED X 4. DENIES ANY PAIN. HAD A LARGE BM LAST NIGHT, STOOL REGIMEN OFFERED BUT PT REFUSED TODAY. APPETITE GOOD. CALLED FOR HIS MED THIS MORNING. WOUND CARE DONE TO HIS FEET. PARTICIPATING WITH THERAPY AND PROGRESSING TOWARDS GOAL. PLAN FOR DC HOME TOMORROW.
--- NOTE | 2020-07-31 12:57 | NUR ---
Team meeting, recommendation: mid cognitive deficits. [facility] soft diet chopped with thin liquids. vital with speech. Dc 6 back to [facility] with HH Yosvany kim ( pt, ot, st with vital stim,). life alert. no driving and follow up with pcp .
--- NOTE | 2020-07-31 16:57 | NUR ---
FAXED CLINICAL UPDATES TO [facility]. CONFIRMED WITH LEA/CLINICAL LIAISON THAT PATIENT IS SCHEDULED TO DISCHARGE TOMORROW, 08/01/20. SHE STATED THAT [facility] HAS THEIR OWN HOME HEALTH SERVICES IF IT DOES NOT INVOLVE NURSING. UPDATED JEWEL BEARING POLISHER. [facility] P [phone]; FAX [phone]; LEA Arechiga [phone]
[2020-07-31 19:54] VITALS: BP 116/70
--- NOTE | 2020-07-31 22:24 | NUR ---
ASSUMED CARE OF PT AT 1925. PT IS A&OX4. IS ON ROOM AIR. DENIES PAIN. IS STABLE. PT CALLED FOR 2000 MEDS REQUESTED BY . TAKES MEDS WHOLE IN APPLESAUCE. IS UP WITH 1 STANDBY ASSIST, MANJU, WALKER. FALL PRECAUTIONS & HOURLY ROUNDING CONTINUED THIS SHIFT. DRSG TO R FOOT, R ELBOW, R THUMB C/D/I. LABS & VITALS REVIEWED. PT IS CURRENLTY IN BED. CALL LIGHT WITHIN REACH. WILL CONTINUE TO MONITOR.
[2020-08-01] MEDS ORDERED: TORSEMIDE10 MG PO (08:14)
--- NOTE | 2020-08-01 08:48 | NUR ---
PT SITTING IN CHAIR IN ROOM. PT DENIES ANY PAIN. PT TOOK MEDS WHOLE IN APPLESAUCE. PT GOING HOME TODAY. PT RT THUMB AND RT ELBOW IS OPEN TO AIR. PT HAD SHOWER THIS AM AND BANDAID WAS PLACED ON FEET BILATERALY. PT LUNGS CLEAR.
[2020-08-01 11:47] VITALS: BP 116/70
--- NOTE | 2020-08-01 13:00 | NUR ---
PT GETTING READY TO DISCHARGE TO [facility]. TOOK PICS OF FEET BILATERALY AND APPLIED BORDER FOAM ON FEET BILATERALY. PT RIDE HERE TO TAKE HIM HOME.
--- NOTE | 2020-08-01 13:10 | NUR ---
PT LEAVING VIA W/C TO [employer]. PT VERBALY UNDERSTOOD D/C ORDERS. PT ROLLED SELF OUT TO ELEVATOR. PT TRANSFERED SELF TO CAR FROM W/C.
--- NOTE | 2020-08-01 16:05 | PLAN ---
[facility] [place] [address] REHAB UNIT PLAN OF CARE Name: STEPHANI NAVARRO Room #: 504-1 DIS IN M.R.#: [id number] Admission: 07/21/20 Attend Phys: Javier Mckeon MD Discharge: 08/01/20 Date of : 34 Report #: [id number] THIS REPORT FOR: cc: Juan Carlos Greenberg MD, Rene P. MD Smithson,Javier Ornelas MD ~ DOC #: [id number] Javier Mckeon MD DATE OF SERVICE: 07/24/2020 HISTORY OF PRESENT ILLNESS: The patient is seen on the inpatient rehabilitation ayala. He was originally admitted to [facility] on 07/19/2020 with shortness of air by his associate account manager, diagnosed with acute exacerbation of CHF with severe mitral regurgitation. He does have ischemic cardiomyopathy. He also has Charcot-Nena deformity, right foot and uses a Cam walker boot. He was in no distress this morning. Last recorded temperature 97.3, pulse 62, respirations 16, blood pressure 107/56. He has the Cam walker boot in place. Transfers are min assist with gait min assist 200 feet with a 4-wheeled walker. Lower body dressing is min assist; upper body dressing is set up. He has mild to moderate cognitive deficits, moderate memory deficits. IMPRESSION: 1. Medical complexity with generalized debilitation. 2. Acute exacerbation of congestive heart failure. 3. Severe mitral regurgitation. 4. Fxdbhgc-Xlhsf-Cjqyg deformity, right foot. 5. Ischemic cardiomyopathy with AICD. 6. Coronary artery disease with history of coronary artery bypass grafting. 7. Hypertension. 8. Degenerative arthritis of the knees. 9. Depression. PLAN: The overall plan of care is based on the pre-admission screen and information garnered from therapy assessments. 1. Estimated length of stay is probably around 7-10 days. 2. Medical prognosis is reasonably good. 3. Anticipated interventions include the interdisciplinary acute inpatient rehabilitation program. 4. Anticipated functional outcomes would be for the patient to become independent again at a 4-wheeled walker as he was before with mobility and ADLs and to improve as far as cognition. 5. Discharge destination would be back to his independent living apartment at [facility]. 6. Expected therapy by discipline includes PT, OT and speech 1 hour per day each five days a week throughout the duration of the acute inpatient rehabilitation stay. [place] [id number] REHAB UNIT PLAN OF CARE Name: STEPHANI NAVARRO Room #: 504-1 [facility] IN .R.#: [id number] Admission: 07/21/20 Attend Phys: Javier Mckeon MD Discharge: 08/01/20 Date of : 34 Report #: [id number] ADDENDUM: The patient's prognosis for significant practical improvement within a reasonable period of time appears good. Given the patient's complex medical condition and risk of further medical complication, rehabilitation services could not be safely provided at a lower level of care such as a chcf facility. MD MAUREEN Hua/SHANA <ELECTRONICALLY SIGNED> By: Javier Mckeon MD 08/01/20 1605 1037 2019 Javier Mckeon MD /nt
--- NOTE | 2020-08-01 20:41 | NUR ---
DC SUMMARY AND H&P FAXED TO PCP DR. COPE.
--- NOTE | 2020-08-05 16:04 | HC ---
[facility] [place] [address] CONSULTATION Name: STEPHANI NAVARRO Room #: 504-1 DIS IN M.R.#: [id number] Admission: 07/21/20 Attend Phys: Javier Mckeon MD Discharge: 08/01/20 Date of : 34 Report #: [id number] THIS REPORT FOR: cc: Juan Carlos Greenberg MD, Rene P. MD Deutch,Soy Perdomo. PhD ~ DOC #: [id number] Soy Orellana, PhD DATE OF SERVICE: 07/29/2020 NEUROBEHAVIORAL STATUS EXAM ATTENDING PHYSICIAN: Javier Mckeon M.D. PERMIT AGENT: Soy Orellana, Ph.D. CLINICAL PRESENTATION: The patient is an 84-year-old male admitted to the [facility] Rehabilitation Unit for a comprehensive inpatient rehabilitation program to improve functional mobility, activities of daily living and self-care and mental status secondary to deficits from cardiac deconditioning and gait stability. He was initially admitted to the hospital on 07/19/2020 with shortness of breath and seen by Cardiology. His medical problem list included acute coronary syndrome, ataxia, bursitis, cellulitis of the foot, congestive heart failure, closed head injury, contusion of the ribs on the left side, fall from a ladder, hemorrhage of the bursa, pacemaker malfunction, traumatic hematoma of the right upper arm, unstable angina and weakness. A complete description of his medical condition and history can be found in his medical record. Assessment on admission to the rehabilitation unit was medical complexity with general cardiac debilitation, AE with CHF, ejection fraction of 30%-35%, severe mitral regurgitation, Charcot deformity of the right foot, ischemic cardiomyopathy, coronary artery disease, history of CABG in 2010, hypertension, hyperlipidemia, depression and DJD of both knees. Neuropsychological consultation was requested to provide assistance in the assessment of cognitive and emotional status and to provide recommendations and services. Prior to this most recent admission, the patient was residing at the [facility] in Independent Living. His recently in 02/2020 from COVID. The patient has been experiencing depression and difficulty managing and coping with her loss. He indicates having been independent with driving and instrumental activities of daily living prior to his hospitalization. The patient has three children that all live out of town. He is a 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 He indicated having worked up until three years ago. He does not report a history of having been treated for depression or anxiety. There is no history of alcohol/drug abuse. He has been attending a support group to assist in the management of grief. TECHNIQUES UTILIZED: Clinical interview, review of medical records, staff consultation and behavioral observation, mini mental status exam 2 standard version and clock drawing. EXAMINATION FINDINGS: The patient was alert and cooperative with the assessment. He accurately described events surrounding his admission. He does not present with aphasia. Thoughts are logical and goal oriented. There is no evidence of thought disorder, auditory/visual hallucinations or suicidal ideation. The patient describes his symptoms to include decreased appetite, tiredness and fatigue, word finding deficits, depression and anxiety. He does not report difficulty with memory. His performance on the MMSE 2 brief version suggests a mild deficit with a raw score of 13 and 16. He was 3/3 for initial registration, 4/5 for orientation to time, 5/[address] and 1/3 for immediate recall of 3 items after a brief time delay and distraction. Performance on the MMSE 2 standard version was 25 of 30, which is a T score of 48, percentile rank of 16. He was 4/5 for serial sevens, 2/2 for naming, 1/1 for repetition, 3/3 for auditory comprehension. He could read and follow a single command and write a sentence. The patient was unable to accurately copy a simple geometric design. Clock drawing was within normal limits. The patient is presenting with some mild deficits in cognition, most likely as well as depression following the loss of his . While alert and oriented, he may have some difficulty with concentration and immediate recall. DIAGNOSTIC IMPRESSION: Unspecified depressive disorder. Mild neurocognitive disorder, unspecified, without behavior disorder. RECOMMENDATIONS: Continued treatment for depression that includes the use of an antidepressant and psychotherapy to assist in overall adjustment. Variability in cognition is likely secondary to cardiac issues and emotional state. It may be safer for the patient to discontinue driving until a more [facility] [address] [place] [address] CONSULTATION Name: STEPHANI NAVARRO Room #: 504-1 DIS IN M.R.#: [id number] Admission: 07/21/20 Attend Phys: Javier Mckeon MD Discharge: 08/01/20 Date of : 34 Report #: [id number] thorough evaluation of cognition can occur. Verbal praise and complements regarding participation in therapies along with engaging in peer interaction on the rehabilitation unit will assist overall adjustment. Thank you very much for allowing me to provide the consultation on this patient. Soy Orellana, PhD CHEKO/ARTEM/JAKE <ELECTRONICALLY SIGNED> By: Soy Orellana, PhD 08/05/20 1604 1201 2223 Soy Orellana, PhD /nt
== END 2020-08-01 13:05 | disposition home health service (06) | DRG 947 ==
LOC: 2N 09:02
PROVIDERS: Nurse Practitioner; Nurse Practitioner Adult Health; Nurse Practitioner Family; ADMIT Physical Medicine & Rehabilitation; ATTEND Physical Medicine & Rehabilitation
DX: R53.81 Other malaise (principal); I50.23 Acute on chronic systolic (congestive) heart failure; E44.0 Moderate protein-calorie malnutrition; I38 Endocarditis, valve unspecified; Z95.810 Presence of automatic (implantable) cardiac defibrillator; I25.5 Ischemic cardiomyopathy; I25.10 Atherosclerotic heart disease of native coronary artery without angina pectoris; F32.9 Major depressive disorder, single episode, unspecified; E78.5 Hyperlipidemia, unspecified; I11.0 Hypertensive heart disease with heart failure; I50.9 Heart failure, unspecified; M17.0 Bilateral primary osteoarthritis of knee; I34.0 Nonrheumatic mitral (valve) insufficiency; G60.0 Hereditary motor and sensory neuropathy; E78.00 Pure hypercholesterolemia, unspecified; G31.84 Mild cognitive impairment of uncertain or unknown etiology; G62.9 Polyneuropathy, unspecified; I49.5 Sick sinus syndrome; E11.42 Type 2 diabetes mellitus with diabetic polyneuropathy; E11.51 Type 2 diabetes mellitus with diabetic peripheral angiopathy without gangrene; E11.621 Type 2 diabetes mellitus with foot ulcer; L97.529 Non-pressure chronic ulcer of other part of left foot with unspecified severity; Z95.1 Presence of aortocoronary bypass graft; Z88.0 Allergy status to penicillin; Z88.2 Allergy status to sulfonamides; Z68.20 Body mass index [BMI] 20.0-20.9, adult; Z87.442 Personal history of urinary calculi; Z98.41 Cataract extraction status, right eye; Z98.42 Cataract extraction status, left eye; I25.2 Old myocardial infarction; Z95.5 Presence of coronary angioplasty implant and graft
CPT/HCPCS: 10112

== ENCOUNTER → 2020-10-24 | Outpatient (CLI) | payer OTHER, BC ==
[~2020-10-24] MED LIST changes: +TORSEMIDE10 MG PO; +ZOLOFT25 MG PO
== END ==
LOC: SJCVC 11:02
PROVIDERS: ATTEND Internal Medicine Cardiovascular Disease
DX: I25.10 Atherosclerotic heart disease of native coronary artery without angina pectoris (principal); E78.00 Pure hypercholesterolemia, unspecified; I25.5 Ischemic cardiomyopathy; I50.22 Chronic systolic (congestive) heart failure; I49.5 Sick sinus syndrome; I47.2 Ventricular tachycardia; Z95.0 Presence of cardiac pacemaker; Z79.899 Other long term (current) drug therapy; Z88.0 Allergy status to penicillin; Z88.2 Allergy status to sulfonamides; Z95.818 Presence of other cardiac implants and grafts; E11.9 Type 2 diabetes mellitus without complications; Z95.1 Presence of aortocoronary bypass graft

== ENCOUNTER 2020-12-26 11:01 | Inpatient (IN) | payer OTHER, BC ==
[~2020-12-26] VITALS: Ht 152.4 cm; Wt 59.0 kg
--- NOTE | ~2020-12-26 | EMS ---
[address] [address] EMS Patient Care Report Name: STEPHANI NAVARRO Room #: 170-12 ADM IN M.R.#: [id number] Admission: 12/26/20 Attend Phys: Christopher Magana MD Discharge: Date of : 34 Report #: [id number] THIS REPORT FOR: //name// Report Transmitted: 12/26/2020 17:59 EMS Care Summary [facility] MED-ACT Incident [id number] @ 12/26/2020 10:09 Incident [address] [place] [address] Patient STEPHANI NAVARRO Male, 85 Years 1935 Patient Address [address] [place] [address] Patient History Pacemaker/AICD,Coronary Artery Bypass Graft (CABG),Cholecystectomy, Patient Allergies Penicillin allergy,Sulfa, Patient Medications Amiodarone, Omeprazole, Lovastatin, Chief Complaint Shortness of breath with cough Disposition Transported No Lights/[place] Dispatch Reason Breathing Problem Transported To [facility] Narrative [id number] dispatched C1 to [facility] for breathing difficulty. [address] [address] EMS Patient Care Report Name: STEPHANI NAVARRO Room #: 170-12 ADM IN Pablo.#: [id number] Admission: 12/26/20 Attend Phys: Christopher Magana MD Discharge: Date of : 34 Report #: [id number] Upon arrival pt found sitting in recliner, responsive, breathing nonlabored, no audible breath sounds, tended to by facility and FD. Pt states that for the past couple of weeks he has had a persistent dry cough and shortness of breath only when he coughs. Pt denies SOA on exertion. Pt states that yesterday he began having some generalized weakness. Pt denies chest pain or n/v. Facility staff states that the pt ADVANCED CLINICAL SPECIALIST came in to check the pt vitals and the pt had a RA oxygen saturation of 80%. Facility states that they placed the pt on 4 lpm oxygen but could not get the pt oxygens saturation above 90%. Pt states that he feels no difference with the oxygen. Pt able to walk to cot with assistance. During transport the pt had to episodes of V-tach. Pt self converted out of V-tach both times within approx 20 sec. Pt state that during the first episode he felt a little funny but had no pain or increased shortness of breath. Pt condition and vitals monitored enroute. Pt care transferred in ER room 12 Initial Vitals @PTAP: 71,BP: 114/55, @10:54P: 107, @10:46P: 73,SpO2: 98, @10:49P: 97,SpO2: 99, @10:34P: 71,SpO2: 95, @10:51P: 95,R: 20,BP: 114/68,SpO2: 98, @10:43P: 84,R: 20,BP: 107/66,GCS: 15,SpO2: 98,Revised Trauma: 12, @10:47P: 82,R: 20,BP: 91/57,GCS: 15,SpO2: 98,Revised Trauma: 12, @10:55P: 109,R: 20,BP: 97/60,GCS: 15,SpO2: 96,Revised Trauma: 12, @10:31P: 90,R: 20,BP: 127/67,Pain: 0/10,GCS: 15,Temp: 98.2F,SpO2: 89,Revised Trauma: 12, Impression Cardiac arrhythmia/dysrhythmia Procedures @10:26 Oxygen FlowRate: 6 Device: Nasal Cannula (NC) Response: ImprovedSucceeded @PTAOxygen FlowRate: 4 Device: Nasal Cannula (NC) Response: ImprovedSucceeded @10:54 12-Lead ECG Response: UnchangedSucceeded @10:50 IV Therapy - Saline Lock 10cc (20 ga) Site: Forearm-Left Response: UnchangedSucceeded @10:49 12-Lead ECG Response: UnchangedSucceeded @10:34 12-Lead ECG Response: UnchangedSucceeded [address] [address] EMS Patient Care Report Name: NAVARROSTEPHANI ROCK Room #: 170-12 ADM IN M.R.#: [id number] Admission: 12/26/20 Attend Phys: Christopher Magana MD Discharge: Date of : 34 Report #: [id number] Timeline WAIT STAFF,Oxygen FlowRate: 4 Device: Nasal Cannula (NC) Response: ImprovedSucceeded, WAIT STAFF,BP: 114/55 M,PULSE: 71,RR: R,SPO2: Ox,ETCO2: ,BG: ,PAIN: ,GCS: , 10:05,Call Received 10:05,Psap Call 10:09,Dispatched 10:10,En Route 10:17,On Scene 10:21,At Patient 10:26,Oxygen FlowRate: 6 Device: Nasal Cannula (NC) Response: ImprovedSucceeded, 10:31,BP: 127/67 M,PULSE: 90,RR: 20 R,SPO2: 89 Ox,ETCO2: ,BG: ,PAIN: 0,GCS: 15, 10:34,12-Lead ECG,Response: UnchangedSucceeded, 10:34,BP: / M,PULSE: 71,RR: R,SPO2: 95 Ox,ETCO2: ,BG: ,PAIN: ,GCS: , 10:36,Depart Scene 10:43,BP: 107/66 M,PULSE: 84,RR: 20 R,SPO2: 98 Ox,ETCO2: ,BG: ,PAIN: ,GCS: 15, 10:46,BP: / M,PULSE: 73,RR: R,SPO2: 98 Ox,ETCO2: ,BG: ,PAIN: ,GCS: , 10:47,BP: 91/57 M,PULSE: 82,RR: 20 R,SPO2: 98 Ox,ETCO2: ,BG: ,PAIN: ,GCS: 15, 10:49,12-Lead ECG,Response: UnchangedSucceeded, 10:49,BP: / M,PULSE: 97,RR: R,SPO2: 99 Ox,ETCO2: ,BG: ,PAIN: ,GCS: , 10:50,IV Therapy - Saline Lock 10cc 20 ga Site: Forearm-Left,Response: UnchangedSucceeded, 10:51,BP: 114/68 M,PULSE: 95,RR: 20 R,SPO2: 98 Ox,ETCO2: ,BG: ,PAIN: ,GCS: , 10:54,12-Lead ECG,Response: UnchangedSucceeded, 10:54,BP: / M,PULSE: 107,RR: R,SPO2: Ox,ETCO2: ,BG: ,PAIN: ,GCS: , 10:55,BP: 97/60 M,PULSE: 109,RR: 20 R,SPO2: 96 Ox,ETCO2: ,BG: ,PAIN: ,GCS: 15, 10:57,At Destination 11:23,Call Closed Disclaimer v1.1 Copyright 2020 [employer] This EMS Care Summary contains data elements from the applicable legal record (which may be displayed differently). It is designed to provide pertinent information for the following purposes: continuity of care, clinical quality, and state data reporting. The complete legal record is available to ED staff and administrators of the receiving hospital in [facility] Patient Tracker. All data is provided "as is."
[2020-12-26 11:03] VITALS: BP 120/60
[2020-12-26 11:30] LABS: ABSOLUTE NEUTROPHILS 15.2 thou/uL (1.4-8.2); BASOPHILS 0.4 % (0.0-2.0); EOSINOPHILS 0.1 % (0.0-3.0); HEMATOCRIT 33.9 % (42.0-52.0); HEMOGLOBIN 11.1 gm/dL (14.0-18.0); LYMPHOCYTES 2.6 % (24.0-44.0); MCHC 32.9 g/dL (28.0-37.0); MCV 91.3 fL (80.0-100.0); MONOCYTES 4.3 % (1.0-8.0); PLATELET COUNT 201 thou/uL (150-400); POLYS 92.6 % (36.0-66.0); RBC 3.71 mil/uL (4.50-6.00); RDW 15.8 % (10.5-14.5); WBC 16.4 thou/uL (4.0-11.0)
[2020-12-26] MEDS ORDERED: PREDNISONE 10 M10 MG PO (11:31)
[2020-12-26 11:50] LABS: CALCIUM 8.5 mg/dL (8.5-10.1); CREATININE 1.3 mg/dL (0.7-1.3)
[2020-12-26 11:57] LABS: BE(vivo) -0.2 mmol/L (-2 to +3); HCO3 22.7 mmol/L (22.0-26.0); PCO2 31.7 mmHg (35.0-45.0); PO2 73.4 mmHg (80.0-100.0); pH 7.473 (7.360-7.450); sO2 95.8 % (92.0-98.0)
[2020-12-26 11:59] LABS: ALBUMIN 2.3 g/dL (3.4-5.0); TOTAL BILIRUBIN 0.8 mg/dL (0.2-1.0); TOTAL PROTEIN 6.2 g/dL (6.4-8.2)
--- NOTE | 2020-12-26 14:20 | EKG ---
[place] [address] [facility] [place] [address] ELECTROCARDIOGRAM REPORT Name: STEPHANI NAVARRO [id number] Admission: 12/26/20 Attend Phys: Discharge: Date of : 34 Report #: [id number] [facility] ED Test Date: 2020-12-26 Test Time: 11:09:50 Pat Name: STEPHANI NAVARRO Department: Room: Gender: M Lap Maker: : 1935 Requested By: Charlotte Prado Order Number: [id number] MD: Clifton Guardado Measurements Intervals [place] Rate: 72 P: -40 NM: 160 QRS: -40 QRSD: 119 T: 105 QT: 498 QTc: 546 Interpretive Statements Sinus rhythm LVH with INTRAVENTRICULAR CONDUCTION DELAY Prolonged QT interval Compared to ECG 01/21/2017 16:19:54 Prolonged QT interval now present Electronically Signed On 12-26-2020 14:20:42 CDT by Clifton Guardado [email or web address] <ELECTRONICALLY SIGNED> By: Clifton Guardado MD, [facility] 12/26/20 1420 1109 1109 Clifton Guardado MD, FACC /EPI
[2020-12-26 19:23] VITALS: BP 119/54
[2020-12-26 20:00] VITALS: BP 137/54
[2020-12-26 23:50] VITALS: BP 118/57; BP 122/77
[2020-12-27 04:14] VITALS: BP 109/61
[2020-12-27 05:48] LABS: ABSOLUTE NEUTROPHILS 12.7 thou/uL (1.4-8.2); BASOPHILS 0.2 % (0.0-2.0); HEMOGLOBIN 11.3 gm/dL (14.0-18.0); LYMPHOCYTES 2.4 % (24.0-44.0); MCH 30.4 pg (26.0-34.0); MCHC 33.4 g/dL (28.0-37.0); MCV 91.2 fL (80.0-100.0); MONOCYTES 1.1 % (1.0-8.0); PLATELET COUNT 202 thou/uL (150-400); POLYS 96.3 % (36.0-66.0); RBC 3.73 mil/uL (4.50-6.00); RDW 16.1 % (10.5-14.5); WBC 13.2 thou/uL (4.0-11.0)
[2020-12-27 06:27] LABS: CALCIUM 8.5 mg/dL (8.5-10.1); CREATININE 1.4 mg/dL (0.7-1.3); MAGNESIUM 2.1 mg/dL (1.8-2.4); POTASSIUM 3.7 mmol/L (3.5-5.1)
[2020-12-27 07:31] VITALS: BP 113/58
--- NOTE | 2020-12-27 07:35 | NUR ---
ADMIT PT ADMITTED TO ROOM 361 FROM ED BEING ADMITTED WITH HEART FAILURE, FLUID RETENTION AND PNEUMONIA. A/O X4 ON 6 LITERS O2 VIA NC. RESPIRATIONS IN THE 30'S DECREASED OVER NIGHT PT VOIDING LARGE AMOUNTS OF CLEAR YELLOW URINE. ORIENTED TO ROOM CALL LIGHT SYSTEM AND POC. ADMISSION ASSESSMENT AND QUESTIONAIRE COMPLETED CONTINUE POC.
--- NOTE | 2020-12-27 09:51 | 2DMMODE ---
[facility] [place] [address] 2 D/M-MODE ECHOCARDIOGRAM Name: STEPHANI NAVARRO ROCK Room #: 361-P ADM IN M.R.#: [id number] Admission: 12/26/20 Attend Phys: Christopher Magana MD Discharge: Date of : 34 Report #: [id number] THIS REPORT FOR: cc: Juan Carlos Greenberg MD, Rene P. MD Lammoglia, Francisco J. MD ~ APPROVED REPORT Study performed: 12/27/2020 08:38:27 EXAM: Comprehensive 2D, Doppler, and color-flow Echocardiogram Patient Location: Bedside Room #: 361 Status: routine BSA: 1.68 HR: 61 bpm BP: 113/58 mmHg Rhythm: NSR Other Information Study Quality: Good Indications CHF, SOB. Hx: CABG, ISCM, pacemaker. 2D Dimensions IVSd: 9.72 (7-11mm) LVOT Diam: 20.28 (18-24mm) LVDd: 62.04 mm PWd: 10.41 (7-11mm) Ascending Ao: 37.70 (22-36mm) LVDs: 51.28 (25-40mm) Left Atrium: 53.69 (27-40mm) Aortic Root: 41.79 mm Volumes Left Atrial Volume (Systole) Single Plane 4CH: 83.80 mL Single Plane 2CH: 94.22 mL LA ESV Index: 57.00 mL/m2 Aortic Valve AoV Peak Fantasma.: 1.36 m/s AO Peak Gr.: 7.37 mmHg LVOT Max P.09 mmHg LVOT Max V: 0.88 m/s PEPPER Vmax: 2.09 cm2 [facility] [address] [address] 2 D/M-MODE ECHOCARDIOGRAM Name: STEPHANI NAVARRO Room #: 361-P [facility].#: [id number] Admission: 12/26/20 Attend Phys: Christopher Magana MD Discharge: Date of : 34 Report #: [id number] Mitral Valve E/A Ratio: 0.8 MV Decel. Time: 200.84 ms MV E Max Fantasma.: 0.56 m/s MV A Fantasma.: 0.73 m/s MV PHT: 58.24 ms IVRT: 96.89 ms Pulmonary Valve PV Peak Fantasma.: 1.07 m/s PV Peak Gr.: 4.56 mmHg Pulmonary Vein P Vein S: 0.39 m/s P Vein D: 0.20 m/s P Vein S/D Ratio: 1.95 Tricuspid Valve TR Peak Fantasma.: 2.67 m/s RAP Estimate: 34.00 mmHg TR Peak Gr.: 29.00 mmHg Left Ventricle Left ventricle is moderately dilated. Regional wall motion abnormalities are noted. Mild basal septal hypertrophy is present. Left ventricular systolic function is severely decreased. LVEF is 30-35%. Mild diastolic dysfunction is present (impaired relaxation pattern). Right Ventricle The right ventricle is normal size. The right ventricular systolic function is normal. Pacemaker lead is present in the right ventricle. Atria Left atrium is severely dilated. The right atrium size is normal. Aortic Valve Aortic valve is trileaflet; mildly sclerotic. Mild aortic regurgitation. There is no aortic valvular stenosis. Mitral Valve Mitral valve leaflets are thickened. Moderate to severe mitral regurgitation; eccentric jet. No evidence of mitral valve stenosis. Tricuspid Valve [facility] [address] [place] [address] 2 D/M-MODE ECHOCARDIOGRAM Name: STEPHANI NAVARRO ROCK Room #: 361-P ADM IN M.R.#: [id number] Admission: 12/26/20 Attend Phys: Christopher Magana MD Discharge: Date of : 34 Report #: [id number] The tricuspid valve is normal in structure. Mild to moderate tricuspid regurgitation. Estimated PAP is 35mmHg. Pulmonic Valve The pulmonary valve is normal in structure. Trace pulmonic regurgitation. Great Vessels The sinuses are dilated at 4.2cm. The ascending aorta is borderline dilated. IVC is normal in size and collapses >50% with inspiration. Pericardium There is no pericardial effusion. <Conclusion> Left ventricle is moderately dilated. Mild basal septal hypertrophy is present. Left ventricular systolic function is severely decreased. LVEF is 30-35%. Pacemaker lead is present in the right ventricle. Left atrium is severely dilated. The right atrium size is normal. Aortic valve is trileaflet; mildly sclerotic. Mild aortic regurgitation. Mitral valve leaflets are thickened. Moderate to severe mitral regurgitation; eccentric jet. The tricuspid valve is normal in structure. Mild to moderate tricuspid regurgitation. Estimated PAP is 35mmHg. The pulmonary valve is normal in structure. Trace pulmonic regurgitation. The sinuses are dilated at 4.2cm. There is no pericardial effusion. <ELECTRONICALLY SIGNED> By: Fabio Coronel MD 12/27/2051 0 0 Fabio Coronel MD /INF
[2020-12-27 11:33] VITALS: BP 141/60
--- NOTE | 2020-12-27 13:49 | NUR ---
INITIAL ASSESSMENT: JAIME reviewed chart and spoke with nursing and attending physician. Pt was admitted from home due to pneumonia/hypoxia. Pt is currently on 10L of O2. Pt is on IV abx. Cardiology and wound care consulted. SW met with pt at bedside. Introduced role of SW. Pt is alert/orientated x 4. Pt reports he lives alone in an apt at [facility]. Prior to admission, pt was using a walker. No use of home O2. Pt is currently on service with [employer] . Pt's PCP is Dr. Greenberg. 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 His dtr lives in [place]. Pt has local support from a couple who also reside at [facility]. SW discussed possible need for post-acute placement prior to returning to his [place] apt. Pt verbalized understanding and is agreeable with post-acute placement v. home with . Therapy evals ordered. JAIME spoke with Allegra at [facility]. Provided update and faxed clinical info to Allegra for review. JAIME is following to assist as needed with discharge planning.
[2020-12-27 15:25] VITALS: BP 97/65
[2020-12-27 16:42] VITALS: BP 97/65
--- NOTE | 2020-12-27 19:00 | NUR ---
ASSUMED PATIENT CARE AT 0700. A/O X4. INCREASED 02 NEEDS ON 8L/NC. RECHECK COVID PCR. UP WITH ASISTED. POOR APPETITE. WILL KEEP MONITOR.
[2020-12-28 04:33] VITALS: BP 99/66
[2020-12-28 06:08] LABS: HEMATOCRIT 37.5 % (42.0-52.0); HEMOGLOBIN 12.4 gm/dL (14.0-18.0); MCH 30.3 pg (26.0-34.0); MCHC 32.9 g/dL (28.0-37.0); MCV 92.1 fL (80.0-100.0); RBC 4.07 mil/uL (4.50-6.00); WBC 24.4 thou/uL (4.0-11.0)
[2020-12-28 06:53] LABS: CALCIUM 8.7 mg/dL (8.5-10.1); CREATININE 1.7 mg/dL (0.7-1.3); MAGNESIUM 2.2 mg/dL (1.8-2.4); POTASSIUM 4.1 mmol/L (3.5-5.1)
[2020-12-28 07:40] VITALS: BP 90/71
--- NOTE | 2020-12-28 08:13 | NUR ---
PROGRESS PT A/O X4 UP WITH SBA, VSS, DOWN TO 5 LITERS O2 SATS WNL. C/O HEADACHE AND TYLENOL GIVEN WITH EFFECT . PT SLEPT MOST OF NIGHT USING CALL LIGHT APPROPRIATELY CONTINUE POC.
[2020-12-28 11:59] VITALS: BP 94/50
--- NOTE | 2020-12-28 13:54 | NUR ---
SW reviewed chart and spoke with nursing and attending physician. Pt placed in Enhanced Isolation earlier today and had repeat COVID test. Pt is now requiring 14L of O2. No weekend discharge planned. 5N consulted to evaluate pt for possible admission to inpt acute rehab. Awaiting COVID test results at this time. SW is following to assist as needed with discharge planning.
[2020-12-28 16:12] VITALS: BP 108/60
[2020-12-28 16:38] LABS: URINE BILIRUBIN NEGATIVE (Negative); URINE BLOOD NEGATIVE (Negative); URINE CLARITY CLEAR; URINE COLOR YELLOW; URINE GLUCOSE-RANDOM* NEGATIVE (Negative); URINE KETONES NEGATIVE (Negative); URINE LEUKOCYTES-REFLEX NEGATIVE (Negative); URINE NITRITE-REFLEX NEGATIVE (Negative); URINE PROTEIN (DIPSTICK) NEGATIVE (Negative); URINE SPECIFIC GRAVITY 1.025 (1.005-1.035); URINE UROBILINOGEN 0.2 E.U./dl (0.2-1.0)
--- NOTE | 2020-12-28 19:21 | NUR ---
RN ASSUMED PT'S CARE AT 0700-1900PM, PT IS A&OX4, RN HAS CALLED HOSPITAL DR TO REPORT PT NEEDS MORE O2 TODAY , PT IS ON OPTIFLOW O2 60%, 50L/MIN/NC, PT HAS SOB WITH ACTIVITIES, PULMONARY DR HAS CONSULT , PT'S VS ARE STABLE AT DAY SHIFT, PT'S O2 SAT STAYS AT 90-94%, PT DENIES PAIN AND N/V AT DAY SHIFT.PT IS CONTINUING IV ABX, PT'S COVID PCR TEST HAS DONE, RESULT IS PENDING.
[2020-12-28 20:35] VITALS: BP 115/65
--- NOTE | 2020-12-29 03:45 | NUR ---
PT ALERT AND ORIENTED X 4. PT HAD BRIEF PERIODS OF RESTLESSNESS OVERNIGHT. PT'S O2 NEEDS INCREASED OVERNIGHT AND O2 SATS RANGE BETWEEN 88-92% WITH INCREASED OXYGEN. CURRENTLY ON A NON-REBREATHER AND OPTIFLOW 50L 71% FIO2. PT RUNNING SA ON HEART MONITOR. COVID PCR REDRAW CAME BACK NEGATIVE. WILL CONTINUE TO MONIOR.
[2020-12-29 04:53] VITALS: BP 87/52
[2020-12-29 07:35] VITALS: BP 83/46
[2020-12-29 11:22] VITALS: BP 98/49
[2020-12-29 11:29] VITALS: BP 97/53
[2020-12-29 11:45] LABS: HCO3 22.5 mmol/L (22.0-26.0); PCO2 33.6 mmHg (35.0-45.0); pH 7.443 (7.360-7.450)
[2020-12-29 15:19] LABS: ABSOLUTE NEUTROPHILS 16.2 thou/uL (1.4-8.2); BASOPHILS 0.1 % (0.0-2.0); EOSINOPHILS 0.5 % (0.0-3.0); HEMATOCRIT 35.3 % (42.0-52.0); HEMOGLOBIN 11.3 gm/dL (14.0-18.0); LYMPHOCYTES 1.7 % (24.0-44.0); MCH 29.3 pg (26.0-34.0); MCV 91.8 fL (80.0-100.0); MONOCYTES 2.5 % (1.0-8.0); PLATELET COUNT 204 thou/uL (150-400); POLYS 95.2 % (36.0-66.0); RBC 3.85 mil/uL (4.50-6.00); RDW 16.4 % (10.5-14.5)
[2020-12-29 15:28] LABS: CALCIUM 8.1 mg/dL (8.5-10.1); CREATININE 1.6 mg/dL (0.7-1.3); POTASSIUM 4.7 mmol/L (3.5-5.1)
[2020-12-29 15:40] VITALS: BP 119/69
[2020-12-29 19:40] VITALS: BP 140/83
--- NOTE | 2020-12-29 19:43 | NUR ---
RN ASSUMED PT'S CARE AT 0700-1900PM, PT IS A&O4, RN HAS REPORTED TO HOSPITAL DR AND PULMONARY DR ABOUT PT NEEDS MORE O2 , PT HAS SOB WITH ACTIVITIES, PT IS ON OPTIFLOW O2 80-95 %, O2 50-55L/MIN, PT'S O2SAT STAY AT 92-95%, PT STARTS NEW IV ABX TODAY, RN HAS REPORTED TO NEXT SHIFT TO KEEP EYE ON PT.
[2020-12-30 05:26] VITALS: BP 85/55
[2020-12-30 06:09] LABS: ABSOLUTE NEUTROPHILS 20.3 thou/uL (1.4-8.2); BASOPHILS 0.1 % (0.0-2.0); EOSINOPHILS 0.1 % (0.0-3.0); HEMATOCRIT 35.4 % (42.0-52.0); HEMOGLOBIN 11.4 gm/dL (14.0-18.0); LYMPHOCYTES 1.8 % (24.0-44.0); MCH 29.8 pg (26.0-34.0); MCHC 32.3 g/dL (28.0-37.0); MCV 92.2 fL (80.0-100.0); PLATELET COUNT 167 thou/uL (150-400); RBC 3.83 mil/uL (4.50-6.00); RDW 16.4 % (10.5-14.5); WBC 21.2 thou/uL (4.0-11.0)
--- NOTE | 2020-12-30 06:11 | NUR ---
PT 02 SATURATION STARTED FROM FALLING AT 1999 WHILE ON OPTIFLOW. PLACED NRB DUE TO PT BEING A MOUTH BREATHER. 02 SATURATION STILL NOT IMPROVING. PLACED CALLS TO HEADING UP MACHINE OPERATOR AND DR. BARAJAS. PT WAS PLACED ON BIPAP. 02 SATURATION STARTED IMPROVING. RX PLACED FOR 2 MG MORPHINE FOR AIR HUNGER DUE TO PT HAVING 45-50 BPM. PT CONDITION IMPROVED TO SATURATIONS 92-98% AND PT FINALLY GOT SOME REST.
[2020-12-30 06:22] LABS: CALCIUM 8.1 mg/dL (8.5-10.1); POTASSIUM 4.6 mmol/L (3.5-5.1)
[2020-12-30 07:19] VITALS: BP 83/52
[2020-12-30 11:13] VITALS: BP 91/49
[2020-12-30 12:05] LABS: BE(vivo) -1.6 mmol/L (-2 to +3); HCO3 22.5 mmol/L (22.0-26.0); pH 7.413 (7.360-7.450); sO2 95.2 % (92.0-98.0)
[2020-12-30 16:31] VITALS: BP 83/52
[2020-12-30 19:12] VITALS: BP 86/55
--- NOTE | 2020-12-30 19:31 | NUR ---
RN ASSUMED PT'S CARE AT 0700-1900PM, PT IS A&OX3 ( PERSON , PLACE AND TIME), PT CAN FOLLOW COMMMANDS, PT IS CONTINUING BIPAP WITH O2 60-100%, PT'S O2SAT SATY AT 92-98%, PT 'S VS ARE STABLE, RN HAS REPORTED DR ABOUT PT'S RR 30-40, PT DOSE NOT HAVE FOR 8HR, NEW ORDER RECEIVED, PT HAS MEDICATIONS FOR AIR HUNGER AND NEW FOLRY CATHETER AT 1800PM ( 700ML URINE COME OUT FROM SHANE CATHETER ), HOSPITAL DR AND RN HAVE UPDATED PT'S IMFORMATION TO PT'S DAUGHTER.
[2020-12-31] VITALS (8 sets, daily range): BP systolic 79–96; BP diastolic 52–59
[2020-12-31 04:42] LABS: ABSOLUTE NEUTROPHILS 15.3 thou/uL (1.4-8.2); BASOPHILS 0.3 % (0.0-2.0); EOSINOPHILS 2.1 % (0.0-3.0); HEMATOCRIT 34.5 % (42.0-52.0); HEMOGLOBIN 11.1 gm/dL (14.0-18.0); LYMPHOCYTES 2.8 % (24.0-44.0); MCH 29.4 pg (26.0-34.0); MCHC 32.2 g/dL (28.0-37.0); MCV 91.4 fL (80.0-100.0); MONOCYTES 1.9 % (1.0-8.0); PLATELET COUNT 160 thou/uL (150-400); POLYS 92.9 % (36.0-66.0); RBC 3.78 mil/uL (4.50-6.00); RDW 16.1 % (10.5-14.5); WBC 16.4 thou/uL (4.0-11.0)
[2020-12-31 05:01] LABS: CALCIUM 7.9 mg/dL (8.5-10.1); MAGNESIUM 2.6 mg/dL (1.8-2.4); POTASSIUM 4.5 mmol/L (3.5-5.1)
--- NOTE | 2020-12-31 06:15 | NUR ---
PT ALERT & ORIENTED X 3. PT CURRENTLY ON BIPAP 40L 60% FIO2. SHANE TO DD. PATIENT INCONTINENT OF STOOL. PT HAD NO C/O OF PAIN OVERNIGHT. VITAL SIGNS STABLE EXCEPT INCREASED RR. ADMINISTERED MORPHINE FOR AIR HUNGER. WILL CONTINUE TO MONITOR.
--- NOTE | 2020-12-31 15:54 | NUR ---
SW reviewed chart and spoke with nursing and attending physician. Pt's repeat COVID test was negative. Pt is on continuous bipap support. PT is on IV abx. Renal consulted. SW received call from Allegra at [facility]. Verbal update provided. 5N is also following pt. SW is following to assist as needed with discharge planning.
--- NOTE | 2020-12-31 20:05 | NUR ---
RN ASSUMED PT'S CARE AT 0700-1900PM, PT IS A&OX4 , PT IS ON BIPAP WITH O2 AT 50-60%, PT'S O2 SAT STAY 94-97%, PT 'S RR HAS IMPROVED, PT DENIES PAIN AT DAY SHIFT.
[2021-01-01 03:41] VITALS: BP 92/54
--- NOTE | 2021-01-01 05:49 | NUR ---
PT MAKING POOR PROGRESS TOWARDS GOALS. LUNGS DIMINISHED THROUGHOUT. ON BIPAP ALL NIGHT. INTIALLY AT 50% FIO2, INCREASED TO 60% THIS AM BY RT. NOTED A FEW APNEIC EPISODES OVER NIGHT. BIPAP DOES ALARM, MASK HAD PROPER SEAL/FIT. GENTLE STIMULATION TO PTS CHEST OR SHOULDER WOULD INTITIATE MORE PRODUCTIVE BREATHS AND CEASE THE ALARMS. CONTINUE TO MONITOR.
[2021-01-01 07:32] VITALS: BP 90/54
[2021-01-01 10:13] LABS: BE(vivo) 0.2 mmol/L (-2 to +3); HCO3 24.2 mmol/L (22.0-26.0); PCO2 36.9 mmHg (35.0-45.0); PO2 82.1 mmHg (80.0-100.0); pH 7.435 (7.360-7.450); sO2 96.4 % (92.0-98.0)
[2021-01-01 11:06] VITALS: BP 97/61
[2021-01-01 13:09] LABS: HEMATOCRIT 34.7 % (42.0-52.0); HEMOGLOBIN 11.1 gm/dL (14.0-18.0); MCH 29.3 pg (26.0-34.0); MCHC 31.9 g/dL (28.0-37.0); MCV 92.1 fL (80.0-100.0); RBC 3.77 mil/uL (4.50-6.00); RDW 16.3 % (10.5-14.5); WBC 13.4 thou/uL (4.0-11.0)
[2021-01-01 13:18] LABS: CALCIUM 8.1 mg/dL (8.5-10.1); MAGNESIUM 2.9 mg/dL (1.8-2.4); POTASSIUM 4.6 mmol/L (3.5-5.1)
[2021-01-01 15:17] VITALS: BP 86/60
[2021-01-01 19:07] VITALS: BP 100/64
--- NOTE | 2021-01-01 19:41 | NUR ---
RN ASSUMED PT'S CARE AT 0700-1900PM, PT IS A&OX4 , PT IS OFF BIPAP AND PT IS TOLERATED OPTIFLOW O2 97%, 50L/MIN, PT'S O2 SAT STAY AT 93-96%, BUT PT 'S O2SAT IS DROP WITH ACTIVITIES, PT STARTS DRIN AND EAT SMALL MEALS, PT IS VERY WEAK, AND HE NEED S HELP ADL.
[2021-01-02 04:03] VITALS: BP 96/61
--- NOTE | 2021-01-02 06:40 | NUR ---
PT ALERT & ORIENTED X 3. CURRENTLY ON OPTIFLOW 55L 94% FIO2. PT O2 SATS OVERNIGHT WERE 90-94%. NO C/O OF PAIN. PT INCONTINENT OF STOOL. WILL CONTINUE TO MONITOR.
[2021-01-02 07:34] VITALS: BP 100/54
[2021-01-02 12:20] VITALS: BP 103/60
--- NOTE | 2021-01-02 15:23 | NUR ---
SW reviewed chart and spoke with nursing and attending physician. Pt is on optiflow and IV abx. PT/OT unable to work with pt at this time. Pt desats with activity. JAIME provided update to Allegra at [facility]. JAIME is following to assist as needed with discharge planning.
[2021-01-02 16:10] VITALS: BP 104/60
[2021-01-02 19:16] VITALS: BP 109/60
--- NOTE | 2021-01-02 19:43 | NUR ---
RN ASSUMED PT'S CARE AT 0700-1900PM, PT IS A&OX4, PT IS CONTINUING OPTIFLOW O2 90-100%, 50L/MIN, PT'S O2SAT STAY AT 90-95%, PT STILL HAS SOB WITH ACTIVITIES, PT STARTS EATS WITH HELP AT MEAL TIME, PT IS HAPPLY WITH FAMILY'S VISIT .
--- NOTE | 2021-01-03 00:54 | NUR ---
PT MOVED BACK TO BIPAP AT 2100 DUE TO 02 SATURATION NOT MAINTAINING ABOVE 90%. WILL CONTINUE TO MONITOR.
[2021-01-03 04:56] VITALS: BP 126/76
[2021-01-03 05:56] LABS: HEMATOCRIT 36.9 % (42.0-52.0); HEMOGLOBIN 12.1 gm/dL (14.0-18.0); MCH 29.8 pg (26.0-34.0); MCHC 32.7 g/dL (28.0-37.0); MCV 90.9 fL (80.0-100.0); RBC 4.06 mil/uL (4.50-6.00); RDW 16.1 % (10.5-14.5); WBC 19.3 thou/uL (4.0-11.0)
[2021-01-03 06:12] LABS: CALCIUM 8.4 mg/dL (8.5-10.1); CREATININE 1.4 mg/dL (0.7-1.3); POTASSIUM 4.8 mmol/L (3.5-5.1)
[2021-01-03 07:30] VITALS: BP 132/78
[2021-01-03 11:28] VITALS: BP 122/79
--- NOTE | 2021-01-03 13:04 | NUR ---
JAIME reviewed chart and spoke with nursing and attending physician. Pt placed back on bipap overnight. JAIME faxed clinical updates to Allegra at [facility] [place] for review. Voice message left for Allegra to provide update as well. Pulmonology to follow up with pt's dtr to discuss plan of care. JAIME is following to assist as needed with discharge planning.
[2021-01-03 17:01] VITALS: BP 114/65
--- NOTE | 2021-01-03 17:50 | NUR ---
ASSUMED PATIENT CARE AT 0700. A/O X4. DROWSY. ON 50L/100% OPTIFLOW. POOR APPETITE. TOT TOWARDS POC GOALS.
[2021-01-03 19:35] VITALS: BP 99/61
[2021-01-04] VITALS (7 sets, daily range): BP systolic 110–149; BP diastolic 61–94
--- NOTE | 2021-01-04 02:37 | NUR ---
ASSESSED AT START OF SHIFT. PT RESTING WELL IN BED. ON OPTIFLOW AND BIPAP AT HS. EVENING MEDS GIVEN WITH APPLE SAUCE. POOR APIPTITE. FOLLEY INTACT. PT INCONTINET. HAD A HUGE BM TONIGHT. FALL PREC IN PLACE AND CALL LIGHT AT REACH. WILL CONT TO MONITOR.
--- NOTE | 2021-01-04 15:39 | NUR ---
JAIME reviewed chart and spoke with nursing and attending physician. Pt is on continuous bipap support. Pt did complete DPOA documentation yesterday with his music engineer. Documentation was witnessed and notarized by music engineer's staff. Copy is on pt's chart. Awaiting input from pt and family regarding plan of care and possible transition to comfort care. JAIME updated Allegra at [facility]. No weekend discharge planned. JAIME is following to assist as needed with discharge planning.
--- NOTE | 2021-01-04 18:06 | NUR ---
ASSUMED PATIENT CARE AT 0700. A/O X4. ON OPTIFLOW AND NRB. C/O RIGHT SHOULDER PAIN. MORPHINE GIVEN. POOR APPATIE. NOT TOWARDS POC GOALS.
[2021-01-05 04:47] VITALS: BP 132/71
--- NOTE | 2021-01-05 04:59 | NUR ---
needing to wear the NRB mask along with the optiflo tonight. he teds to grab at blankets and telemettry and pulls at them when he anxious. he one dose of the Fentanyk for air hunger and pain tonight. it did reduce his heavy labored breathing. o2 sats staying in the low 90's to upper 80's.
[2021-01-05 07:31] VITALS: BP 115/58
[2021-01-05 11:09] VITALS: BP 124/60
--- NOTE | 2021-01-05 12:53 | NUR ---
PT STEPHANI EMERSON,
--- NOTE | 2021-01-05 15:36 | NUR ---
Palliative care orders initiated. Pt martina Sommers in room with pt. dc'd optiflow & nonrebreather per pt request. PRN morphine and lorazepam administered for comfort.
--- NOTE | 2021-01-05 17:59 | NUR ---
/DC: PT PASSED AT 1655. DR MC NOTIFIED. TWO NURSE VERIFICATION. SON AT BEDSIDE. PT FAMILY UNSURE OF HOME, WILL CALL UNIT LATER. ALL PERSONAL BELONGINGS SENT WITH SON STEPHANI NAVARRO. PT IS NOT A CANIDATE FOR TISSUE DONATION DUE TO AGE, REFERENCE [id number].
== END 2021-01-05 16:55 | DRG 871 ==
LOC: ER 11:01 → 3W 17:11 → EROBS 17:11 → 3W 19:45
PROVIDERS: Internal Medicine Pulmonary Disease; Nurse Practitioner; Nurse Practitioner Adult Health; Physician Assistant; ADMIT Internal Medicine; ATTEND Internal Medicine
DX: A41.50 Gram-negative sepsis, unspecified (principal); J18.9 Pneumonia, unspecified organism; I50.23 Acute on chronic systolic (congestive) heart failure; J96.21 Acute and chronic respiratory failure with hypoxia; G92.8 Other toxic encephalopathy; E44.0 Moderate protein-calorie malnutrition; N17.9 Acute kidney failure, unspecified; I13.0 Hypertensive heart and chronic kidney disease with heart failure and stage 1 through stage 4 chronic kidney disease, or unspecified chronic kidney disease; I25.5 Ischemic cardiomyopathy; I27.20 Pulmonary hypertension, unspecified; E11.621 Type 2 diabetes mellitus with foot ulcer; N18.9 Chronic kidney disease, unspecified; Z20.822 Contact with and (suspected) exposure to COVID-19; E11.42 Type 2 diabetes mellitus with diabetic polyneuropathy; K21.9 Gastro-esophageal reflux disease without esophagitis; E78.00 Pure hypercholesterolemia, unspecified; D64.9 Anemia, unspecified; I25.10 Atherosclerotic heart disease of native coronary artery without angina pectoris; E78.5 Hyperlipidemia, unspecified; I49.5 Sick sinus syndrome; Z66 Do not resuscitate; S91.302A Unspecified open wound, left foot, initial encounter; E11.22 Type 2 diabetes mellitus with diabetic chronic kidney disease; R53.81 Other malaise; F32.9 Major depressive disorder, single episode, unspecified; M14.671 Charcot's joint, right ankle and foot; E78.1 Pure hyperglyceridemia; M35.3 Polymyalgia rheumatica; F43.21 Adjustment disorder with depressed mood; I08.1 Rheumatic disorders of both mitral and tricuspid valves; Z95.0 Presence of cardiac pacemaker; Z95.1 Presence of aortocoronary bypass graft; Z90.49 Acquired absence of other specified parts of digestive tract; Z87.442 Personal history of urinary calculi; Z98.42 Cataract extraction status, left eye; Z98.41 Cataract extraction status, right eye; Z95.5 Presence of coronary angioplasty implant and graft; I25.2 Old myocardial infarction; Z88.0 Allergy status to penicillin; Z88.2 Allergy status to sulfonamides; Z51.5 Encounter for palliative care; X58.XXXA Exposure to other specified factors, initial encounter; Y93.89 Activity, other specified; Y92.89 Other specified places as the place of occurrence of the external cause; Y99.8 Other external cause status
CPT/HCPCS: 10879